=== PATIENT | female | born 1960 | race Caucasian/White ===

== ENCOUNTER → 2017-11-29 09:49 | Outpatient (CLI) | payer OTHER, SELFPAY ==
--- NOTE | 2017-11-29 09:52 | DI.RAD.S_ITS ---
PROCEDURE: XR FOOT LT MIN 3V INDICATIONS: PAIN IN LT FOOT TECHNIQUE: 3 views of the foot were acquired. COMPARISON: [facility] Outside [facility], CR, XR BILAT FOOT 3VW, 10/16/2016, 9:03. FINDINGS: Bones: No fractures or dislocations. No suspicious bony lesions. Joint degeneration is evident in the tarsometatarsal joints 2-5 and in the navicular -cuneiform joint medially. No erosive changes seen. Weightbearing lateral view shows pes planus with calcaneal pitch of 6.8?. Soft tissues: No tibiotalar joint effusion. Achilles tendon appears normal. Linear soft tissue calcifications are noted in the region of the Achilles tendon and overlying the medial head of the first metatarsal IMPRESSION: 1. Pes planus. 2. Tarsometatarsal osteoarthritis. 3. Possible old partial tear Achilles tendon. Dictated by: Mauro Thomas M.D. on 11/29/2017 at 11:19 Approved by: Mauro Thomas M.D. on 11/29/2017 at 11:24
== END ==
PROVIDERS: Family Provider Family Medicine; PCP Family Medicine; Visit Provider Family Medicine
DX: M19.072 Primary osteoarthritis, left ankle and foot (principal)
CPT/HCPCS: 73630

== ENCOUNTER → 2017-12-20 10:56 | Outpatient (CLI) | payer OTHER, SELFPAY ==
[2017-12-20 12:05] LABS: Add Manual Diff / Slide Review NO; Basophils Percent Auto 0.5 % (0-2); Eosinophils Percent Auto 2.7 % (2-4); Hematocrit 34.6 % (36-46); Hemoglobin 11.7 g/dL (12.0-16.0); Lymphocytes Percent Auto 33.1 % (25-40); Mean Corpuscular HGB Conc 33.7 % (30-36); Mean Corpuscular Hemoglobin 31.7 PG (26-34); Monocytes Percent Auto 8.8 % (3-14); Neutrophils Absolute Auto 3200 /uL (3000-5900); Neutrophils Percent Auto 54.9 % (50-75); Platelet Count 270 X10^3/uL (150-400); Red Blood Cell Count 3.68 X10^6/uL (4.0-5.2); Red Cell Distribution Width 13.1 % (11.6-14.8); White Blood Cell Count 5.9 X10^3/uL (4.5-11.0)
[2017-12-20 12:13] LABS: Alanine Aminotransferase 25 IU/L (9-52); Albumin 4.3 g/dL (3.5-5.0); Albumin Globulin Ratio 1.3 (1.0-2.8); Alkaline Phosphatase 108 U/L (38-126); Aspartate Aminotransferase 22 IU/L (14-36); BUN Creatinine Ratio 25.8 (6-22); Bilirubin Total 0.5 mg/dL (0.2-1.3); Blood Urea Nitrogen 31 mg/dL (7-17); Calcium 10.4 mg/dL (8.4-10.2); Carbon Dioxide 31 mmol/L (22-32); Chloride 99 mmol/L (98-107); Estimated Glomerular Filt Rate 46.5 mL/min (>60); Globulin 3.2 g/dL (1.7-4.1); Glucose 93 mg/dL (70-100); HEMOLYSIS < 15 (0-50); Potassium 5.2 mmol/L (3.4-5.1); Sodium 138 mmol/L (137-145); Total Protein 7.5 g/dL (6.3-8.2)
== END ==
PROVIDERS: Family Provider Family Medicine; PCP Family Medicine; Visit Provider Family Medicine
DX: M79.7 Fibromyalgia (principal)
CPT/HCPCS: 36415; 80053; 84443; 85025

== ENCOUNTER → 2018-01-21 08:25 | Outpatient (CLI) | payer OTHER, SELFPAY ==
--- NOTE | 2018-01-21 | DI.MRI.S_ITS ---
PROCEDURE: MR SHOULDER RT W CON INDICATIONS: right shoulder osteoarthritis TECHNIQUE: After the administration of 12 mL of dilute intra-articular Gadolinium contrast, oblique coronal T1 and T2 spin echo with fat saturation, oblique sagittal T1 spin echo with and without fat saturation, oblique sagittal T2 fast spin echo with fat saturation, axial T1 spin echo with fat saturation through the shoulder. COMPARISON: [facility], MR, SHOULDER WITHOUT CONTRAST, 08/11/2017, 17:26. FINDINGS: Image quality: Suboptimal related to motion artifact on several imaging sequences. Rotator cuff: There is a large, chronic appearing full-thickness tear of the rotator cuff. The supraspinatus and infraspinatus tendons are completely torn and retracted beyond the glenoid with corresponding muscle atrophy. There is moderate to high-grade partial-thickness tearing evident involving the distal subscapularis tendon with corresponding mild tendinopathy. The teres minor tendon is intact. No significant subscapularis or teres minor muscle atrophy is evident. Bones and bursae: There is no acute fracture, dislocation, or suspicious osseous lesion identified involving the osseous structures of the right shoulder. However, there is proximal subluxation of the humeral head with respect to the glenoid. Metallic susceptibility artifact overlying the humeral head is compatible with prior rotator cuff repair. There are moderate degenerative changes of the acromioclavicular joint. There is adequate distention of the glenohumeral joint with the injected contrast. No definite loose intra-articular joint bodies are present. There is mild synovial hypertrophy. Capsule and soft tissues: There is a tear along the posterosuperior aspect of the labrum, which is similar to the previous examination. This tear of the labrum may be circumferential. The long head of the biceps tendon is positioned within the bicipital groove. The proximal most aspect of this tendon is not definitely seen, which may be related to previous biceps tenodesis. No definite acute injuries involving the glenohumeral ligaments are evident. IMPRESSION: 1. Large chronic appearing full-thickness tear of the supraspinatus and infraspinatus tendons with corresponding muscle atrophy. 2. Moderate to high-grade partial-thickness tearing of the distal subscapularis tendon with corresponding tendinopathy. 3. Moderate-sized posterosuperior labral tear. 4. Possible previous biceps tenodesis. Please correlate clinically. 5. Mild to moderate degenerative changes of the glenohumeral and acromioclavicular joints. Dictated by: Alpesh Khan M.D. on 01/21/2018 at 15:36 Approved by: Alpesh Khan M.D. on 01/21/2018 at 15:58
--- NOTE | 2018-01-21 | DI.RAD.S_ITS ---
PROCEDURE: FL SHOULDER INJECTION MR/CT RT INDICATIONS: right shoulder osteoarthritis TECHNIQUE: The indications, alternatives, benefits, risks, and complications of the procedure were explained to the patient. Written informed consent was obtained and placed in the chart. The shoulder was examined fluoroscopically and a site for needle placement chosen for entry into the glenohumeral joint from an anterior approach. The skin was prepped and draped in a sterile fashion, and 1% lidocaine infiltrated from skin down to joint capsule. A spinal needle was inserted into the glenohumeral joint, and a small amount of iodinated contrast media injected to confirm intra-articular placement of the needle tip. This was followed by approximately 12 mL dilute solution of a gadolinium containing MR contrast agent. The needle was removed and a dressing was applied. The patient was given postprocedural instructions and sent to the MR suite for MR imaging. FINDINGS: A single fluoroscopic spot image demonstrates intra-articular location of injected iodinated contrast. Soft tissue anchors project in the right humeral head. IMPRESSION: Successful fluoroscopically guided administration of dilute Gadolinium solution into the shoulder joint for MR arthrogram. Dictated by: Carlo Haley M.D. on 01/21/2018 at 11:14 Approved by: Carlo Haley M.D. on 01/21/2018 at 11:14
== END ==
PROVIDERS: Family Provider Family Medicine; PCP Family Medicine; Visit Provider Orthopaedic Surgery
DX: M75.101 Unspecified rotator cuff tear or rupture of right shoulder, not specified as traumatic (principal); S43.491A Other sprain of right shoulder joint, initial encounter; M19.011 Primary osteoarthritis, right shoulder
CPT/HCPCS: 23350; 73222; 77002

== ENCOUNTER → 2018-01-24 16:42 | Outpatient (CLI) | payer OTHER, SELFPAY ==
[2018-01-24 17:29] LABS: Add Manual Diff / Slide Review NO; Basophils Percent Auto 0.5 % (0-2); Eosinophils Percent Auto 2.6 % (2-4); Hematocrit 36.5 % (36-46); Hemoglobin 12.3 g/dL (12.0-16.0); Lymphocytes Percent Auto 32.6 % (25-40); Mean Corpuscular HGB Conc 33.7 % (30-36); Mean Corpuscular Hemoglobin 31.1 PG (26-34); Mean Corpuscular Volume 92.2 fL (80-100); Neutrophils Absolute Auto 2900 /uL (3000-5900); Neutrophils Percent Auto 54.3 % (50-75); Platelet Count 263 X10^3/uL (150-400); Red Blood Cell Count 3.96 X10^6/uL (4.0-5.2); Red Cell Distribution Width 13.3 % (11.6-14.8); White Blood Cell Count 5.3 X10^3/uL (4.5-11.0)
[2018-01-24 17:42] LABS: BUN Creatinine Ratio 25.5 (6-22); Blood Urea Nitrogen 28 mg/dL (7-17); Calcium 10.2 mg/dL (8.4-10.2); Carbon Dioxide 29 mmol/L (22-32); Chloride 95 mmol/L (98-107); Estimated Glomerular Filt Rate 51.4 mL/min (>60); Glucose 92 mg/dL (70-100); HEMOLYSIS < 15 (0-50); Potassium 4.4 mmol/L (3.4-5.1); Sodium 133 mmol/L (137-145)
[2018-01-24 18:16] LABS: Ferritin 31.5 ng/mL (11.1-264)
[2018-01-24 18:21] LABS: HEMOLYSIS < 15 (0-50); Iron 39 ug/dL (37-170)
[2018-01-24 18:33] LABS: Percent Iron Saturation 11 % (15-50); Total Iron Binding Capacity 370 ug/dL (265-497); Transferrin 301 mg/dL (206-381)
[2018-01-24 18:41] LABS: Vitamin D 25 Hydroxy (D3) 47.7 ng/mL (30.0-100.0)
== END ==
PROVIDERS: Family Provider Family Medicine; PCP Family Medicine; Visit Provider Family Medicine
DX: D64.9 Anemia, unspecified (principal); G25.81 Restless legs syndrome
CPT/HCPCS: 36415; 80048; 82306; 82728; 83540; 83550; 85025

== ENCOUNTER → 2018-02-28 14:39 | Outpatient (CLI) | payer OTHER, SELFPAY ==
--- NOTE | 2018-02-28 14:41 | DI.RAD.S_ITS ---
PROCEDURE: XR LUMBAR SPINE 2-3V INDICATIONS: Low back pain TECHNIQUE: 3 views of the lumbar spine were acquired. COMPARISON: [facility], , L-SPINE 2-3 VIEWS, 03/24/2007, 15:50. FINDINGS: Bones: 5 [id number] vertebrae are present. [id number] dextroscoliosis of lumbar spine centered at L2-3 level is seen. Increased intervertebral disc space and degenerative endplate changes with bilateral facet arthrosis is noted throughout lumbar spine more prominent at L4-5 and L5-S1 levels. No vertebral body compression fractures. No suspicious bony lesions. Soft tissues: Overlying bowel gas pattern is normal. No suspicious soft tissue calcifications. IMPRESSION: Degenerative disc disease throughout lumbar spine. No acute compression fracture or traumatic spondylolisthesis. Dictated by: Ney Torres M.D. on 02/28/2018 at 15:45 Approved by: Ney Torres M.D. on 02/28/2018 at 15:46
== END ==
PROVIDERS: Family Provider Family Medicine; PCP Family Medicine; Visit Provider Registered Nurse
DX: M51.36 Other intervertebral disc degeneration, lumbar region (principal); M54.5 Low back pain; M51.37 Other intervertebral disc degeneration, lumbosacral region
CPT/HCPCS: 72100

== ENCOUNTER → 2018-04-01 15:35 | Outpatient (CLI) | payer OTHER, SELFPAY ==
--- NOTE | 2018-04-01 15:37 | DI.MRI.S_ITS ---
PROCEDURE: MR SHOULDER LT WO CON INDICATIONS: LEFT SHOULDER PAIN TECHNIQUE: Noncontrast oblique coronal T2 fast spin echo with fat saturation, oblique sagittal T1 spin echo and T2 fast spin echo with fat saturation, axial T1 spin echo and T2 fast spin echo with fat saturation through the shoulder. COMPARISON: None. FINDINGS: Image quality: Severely degraded by uncontrollable motion artifact. This is despite multiple attempts and secondary to severe pain during the examination. Rotator cuff: Suboptimal evaluation due to motion artifact however there is large full-thickness rotator cuff tear involving the infraspinatus and supraspinatus tendons. There is also prominent interstitial tearing involving the infraspinatus tendon for example image 2 series 9, image 13 series 4. Teres minor demonstrates bursal surface fraying. Subscapularis tendon appears intact although distal thickening and tendinopathy with interstitial tearing. Mild atrophy of the supraspinatus and infraspinatus muscle bellies and fatty infiltration of the infraspinatus muscle. Bones and bursae: No bone marrow contusions or fractures. Severe acromioclavicular joint degeneration. The acromion demonstrates conventional anatomy, without an os acromiale. Capsule and soft tissues: The labrum is not well seen due to severe motion artifact. Portions of anterior and posterior labrum appear grossly intact. The superior and inferior labrum are not well visualized due to motion. The long head of the biceps tendon is not well-visualized although unclear this is due to partial or complete rupture, versus motion artifact. Please correlate with clinical exam findings. The coracohumeral ligament is normal in thickness. IMPRESSION: Severely suboptimal evaluation due to uncontrollable motion artifact as detailed above. Large full-thickness tear involving the supraspinatus and infraspinatus tendon. Bursal surface fraying of the teres minor. Distal subscapularis tendinopathy and thickening with interstitial tearing. Mild atrophy of the supraspinatus and infraspinatus muscle bellies. Long head biceps tendon not well visualized following clear this is secondary to motion versus partial or complete rupture. Please correlate to clinical exam findings. Dictated by: Carlo Haley M.D. on 04/01/2018 at 16:42 Approved by: Carlo Haley M.D. on 04/01/2018 at 16:50
== END ==
PROVIDERS: Family Provider Family Medicine; PCP Family Medicine; Visit Provider Orthopaedic Surgery
DX: M25.512 Pain in left shoulder (principal); M75.122 Complete rotator cuff tear or rupture of left shoulder, not specified as traumatic
CPT/HCPCS: 73221

== ENCOUNTER 2018-04-13 14:44 | Emergency (ER) | payer OTHER, SELFPAY ==
[2018-04-13 15:03] VITALS: BP 140/92; PULSE 81; RESP 18; TEMP 36.8; O2SAT 99
--- NOTE | 2018-04-13 15:28 | DI.US.S_ITS ---
PROCEDURE: US PERIPH VENOUS LOW EXTREM LT INDICATIONS: dvt concern TECHNIQUE: Real-time imaging, as well as color and pulse Doppler interrogation, were performed of the lower extremity deep veins from the inguinal ligament to the popliteal fossa. COMPARISON: None. FINDINGS: The deep veins are normally compressible, and free of intraluminal thrombus. Color and pulse Doppler demonstrate normal phasic intraluminal flow. There is normal augmentation response to distal compression maneuver. IMPRESSION: No DVT found left lower extremity. Dictated by: Spencer Stone M.D. on 04/13/2018 at 17:04 Approved by: Spencer Stone M.D. on 04/13/2018 at 17:04
--- NOTE | 2018-04-13 17:23 | ED.EXTPRO ---
HPI - Extremity Problem <Yanet Caal CHARRER-BC - Last Filed: 04/13/18 20:47> General Chief complaint: Extremity Problem,Nontraumatic Stated complaint: states possible DVT Time Seen by Provider: 04/13/18 16:19 Source: patient Mode of arrival: ambulatory Limitations: no limitations History of Present Illness HPI Narrative: Patient presents with chief complaint of left lower leg pain. 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 She is concerned about recurrent DVT in her left lower leg as she has had increased swelling noted and increased pain in the calf. Last time she took blood thinners for about 6 months. She states she had a shoulder surgery about 2 weeks ago. She denies any trauma, numbness, tingling of her left lower leg. She denies any chest pain, shortness of breath. Related Data Home Medications Medication Instructions Recorded Confirmed acetaminophen 325 mg PO PRN PRN #0 09/10/11 03/17/18 cholecalciferol (vitamin D3) 5,000 unit PO DIRECTED #0 10/15/17 04/13/18 Disabled Parking Permit 1 dev MISCELLANEOUS PRN PRN 04/13/18 04/13/18 lisinopril 20 mg PO BID 04/13/18 04/13/18 oxycodone 1 - 2 tab PO Q3HP PRN 04/13/18 04/13/18 pramipexole [Mirapex] 0.125 mg PO QID 04/13/18 04/13/18 Previous Rx's Medication Instructions Recorded diclofenac sodium 50 mg PO TID #180 tab 09/14/17 spironolactone 25 mg PO BID #180 tab 10/05/17 thyroid (pork) [[place]ry Thyroid] 60 mg PO QDAY #90 tab 10/25/17 citalopram 20 mg tablet 40 mg PO DAILY #180 tab 12/20/17 trazodone 50 mg tablet 100 mg PO BEDTIME #60 tab 03/07/18 cyclobenzaprine 10 mg tablet 10 mg PO TID PRN #30 tab 04/07/18 Allergies Allergy/AdvReac Type Severity Reaction Status Date / Time amoxicillin [AMOXICILLIN] Allergy Severe HIVES Unverified 03/17/18 11:02 Sulfa (Sulfonamide Allergy Severe MOUTH Unverified 03/17/18 11:02 Antibiotics) LESIONS [SULFA (SULFONAMIDE ANTIBIOTICS)] iodine [IODINE] AdvReac Severe VAGINAL Unverified 03/17/18 11:02 BURNING W/DOUCHE, TOPICAL IS O.K. Review of Systems <Yanet CaalMADIP- - Last Filed: 04/13/18 20:47> Review of Systems GENERAL: Denies chills, fatigue, malaise, fever, sweats. HEENT: Denies sinus pain, ear pain, sore throat, difficulty swallowing, dizziness. RESPIRATORY: Denies dyspnea, cough, wheezing, hemoptysis, sputum. CARDIOVASCULAR: Denies chest pain, palpitations, orthopnea, edema, GASTROINTESTINAL: Denies nausea, vomiting, abdominal pain, diarrhea, constipation, melena. : Denies dysuria, frequency, incontinence, hematuria, urinary retention. MUSCULOSKELETAL: See HPI SKIN: Denies rash, skin lesions, or other NEUROLOGIC: Denies weakness, headache, numbness, change in speech, confusion, seizures, incoordination. PSYCHIATRIC: No concerning psychosocial issues. 12 point review of systems is negative except for those stated above Exam <Yanet Ten [facility]- - Last Filed: 04/13/18 20:47> Narrative Exam Narrative: GENERAL: Obese patient lying on stretcher. HEAD: Atraumatic. Normocephalic. No temporal or scalp tenderness. EYES: Pupils equal round and reactive. Extraocular motions intact. No scleral icterus. No injection or drainage. ENT: Nose without bleeding, purulent drainage or septal hematoma. Throat without erythema, tonsillar hypertrophy or exudate. Uvula midline. Airway patent. NECK: Trachea midline. No JVD or lymphadenopathy. Supple, nontender, no meningeal signs. CARDIOVASCULAR: Regular rate and rhythm without murmurs, gallops, or rubs. RESPIRATORY: Clear to auscultation. Breath sounds equal bilaterally. No wheezes, rales, or rhonchi. GASTROINTESTINAL: Abdomen soft, non-tender, nondistended. No hepato-splenomegaly, or palpable masses. No guarding. EXTREMITIES: +1 edema noted bilateral lower extremities. pedal pulses intact bilateral lower extremities. Warmth is normal. White refill less than 2 sec to the bilateral lower extremities. Negative bilaterally. BACK: Nontender without deformity or crepitance. No flank tenderness. NEURO: AOx3. SKIN: No erythema or ecchymosis noted bilateral lower extremities. Initial Vital Signs Initial Vital Signs: Vital Signs Temperature 98.3 F 04/13/18 15:03 Pulse Rate 81 04/13/18 15:03 Respiratory Rate 18 04/13/18 15:03 Blood Pressure 140/92 H 04/13/18 15:03 Pulse Oximetry 99 04/13/18 15:03 <Karlene Barajas MD - Last Filed: 04/15/18 12:00> Initial Vital Signs Initial Vital Signs: Vital Signs Temperature 98.3 F 04/13/18 15:03 Pulse Rate 81 04/13/18 15:03 Respiratory Rate 18 04/13/18 15:03 Blood Pressure 140/92 H 04/13/18 15:03 Pulse Oximetry 99 04/13/18 15:03 Course <MICHAEL Shea - Last Filed: 04/13/18 20:47> Orders Ordered: ED Orders 04/13/18 15:28 US periph venous low extrem lt Stat Vital Signs - 8 hr 04/13/18 15:03 04/13/18 17:36 Temperature 98.3 F Pulse Rate 81 80 Respiratory Rate 18 14 Blood Pressure 140/92 H Blood Pressure [Left Arm] 132/70 Pulse Oximetry 99 98 <Karlene Barajas MD - Last Filed: 04/15/18 12:00> Orders Ordered: ED Orders 04/13/18 15:28 US periph venous low extrem lt Stat Vital Signs - 8 hr 04/13/18 15:03 04/13/18 17:36 Temperature 98.3 F Pulse Rate 81 80 Respiratory Rate 18 14 Blood Pressure 140/92 H Blood Pressure [Left Arm] 132/70 Pulse Oximetry 99 98 MDM - Extremity (Nontraumatic) <MICHAEL Shea - Last Filed: 04/13/18 20:47> Imaging Data Venous US: Radiologist's impression: [address] [address] Ultrasound Report Signed Patient: Ella Jones [facility]#: [id number] : 1Acct:[id number] Age/Sex: 58 / FDate of Service: 04/13/18 Loc: ED Accession Number: [id number] Procedure: US periph venous low extrem lt Ordering Provider: Yanet Caal-BC PROCEDURE: US PERIPH VENOUS LOW EXTREM LT INDICATIONS: dvt concern TECHNIQUE: Real-time imaging, as well as color and pulse Doppler interrogation, were performed of the lower extremity deep veins from the inguinal ligament to the popliteal fossa. COMPARISON: None. FINDINGS: The deep veins are normally compressible, and free of intraluminal thrombus. Color and pulse Doppler demonstrate normal phasic intraluminal flow. There is normal augmentation response to distal compression maneuver. IMPRESSION: No DVT found left lower extremity. Dictated by: Spencer Stone M.D. on 04/13/2018 at 17:04 Approved by: Spencer Stone M.D. on 04/13/2018 at 17:04 MDM Narrative Medical decision making narrative: Patient presents for left leg pain as well as edema. She has a history of DVT, PE and recently had surgery. However her exam she had bilateral edema and her ultrasound showed no DVT. I offered to do lab work to evaluate for possible other causes of edema, but she declined. I highly suspect that her stopping of her spironolactone a few weeks ago might have contributed to. I encouraged her to follow with her primary care provider if needed and gave return precautions to emergency department including chest pain shortness of breath or concern for another DVT or PE. She had no questions or concerns upon discharge. Discharge Plan Departure Patient Disposition: Home Clinical Impression: Acute leg pain, Edema Discharge Date/Time: 04/13/18 17:37 Interventions: ED Discharge Assessment Last Done: 04/13/18 17:36 Instructions: DI for Leg Pain, DI for Peripheral Edema -- Bilateral, DI for Peripheral Edema, Unilateral Activity Restrictions/Additional Instructions: Please follow-up with primary care provider regarding your leg pain in your leg swelling if needed. Come back to the emergency department for any acute concerns including chest pain, shortness of breath or concern for another PE/DVT. Today your ultrasound came back negative for any DVT. Prescriptions: No Action acetaminophen 325 MG tablet 325 mg PO PRN PRN (Reason: pain) Qty: 0 RF: 0 diclofenac sodium 50 MG tablet,delayed release (DR/EC) 50 mg PO TID Qty: 180 RF: 3 spironolactone 25 MG tablet 25 mg PO BID Qty: 180 RF: 5 cholecalciferol (vitamin D3) 5,000 UNIT capsule 5,000 unit PO DIRECTED Qty: 0 RF: 0 thyroid (pork) [[place] Thyroid] 60 MG tablet 60 mg PO QDAY Qty: 90 RF: 1 trazodone 50 mg tablet 100 mg PO BEDTIME Qty: 60 RF: 1 cyclobenzaprine 10 mg tablet 10 mg PO TID PRN (Reason: muscle spasm) Qty: 30 RF: 1 citalopram 20 mg tablet 40 mg PO DAILY Qty: 180 RF: 3 lisinopril 10 mg tablet 20 mg PO BID RF: 0 pramipexole [Mirapex] 0.125 mg tablet 0.125 mg PO QID RF: 0 oxycodone 5 mg tablet 1 - 2 tab PO Q3HP PRN (Reason: pain) RF: 0 Disabled Parking Permit 1 dev miscellaneous PRN PRN (Reason: parking) RF: 0
--- NOTE | 2018-04-13 17:30 | ED_ITS ---
HPI - Extremity Problem <Yanet Caal FLAG SIGNALER-BC - Last Filed: 04/13/18 20:47> General Chief complaint: Extremity Problem,Nontraumatic Stated complaint: states possible DVT Time Seen by Provider: 04/13/18 16:19 Source: patient Mode of arrival: ambulatory Limitations: no limitations History of Present Illness HPI Narrative: Patient presents with chief complaint of left lower leg pain. 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 She is concerned about recurrent DVT in her left lower leg as she has had increased swelling noted and increased pain in the calf. Last time she took blood thinners for about 6 months. She states she had a shoulder surgery about 2 weeks ago. She denies any trauma, numbness, tingling of her left lower leg. She denies any chest pain, shortness of breath. Related Data Home Medications Medication Instructions Recorded Confirmed acetaminophen 325 mg PO PRN PRN #0 09/10/11 03/17/18 cholecalciferol (vitamin D3) 5,000 unit PO DIRECTED #0 10/15/17 04/13/18 [address]abled [address]ing Permit 1 dev MISCELLANEOUS PRN PRN 04/13/18 04/13/18 lisinopril 20 mg PO BID 04/13/18 04/13/18 oxycodone 1 - 2 tab PO Q3HP PRN 04/13/18 04/13/18 pramipexole [Mirapex] 0.125 mg PO QID 04/13/18 04/13/18 Previous Rx's Medication Instructions Recorded diclofenac sodium 50 mg PO TID #180 tab 09/14/17 spironolactone 25 mg PO BID #180 tab 10/05/17 thyroid (pork) [[place] Thyroid] 60 mg PO QDAY #90 tab 10/25/17 citalopram 20 mg tablet 40 mg PO DAILY #180 tab 12/20/17 trazodone 50 mg tablet 100 mg PO BEDTIME #60 tab 03/07/18 cyclobenzaprine 10 mg tablet 10 mg PO TID PRN #30 tab 04/07/18 Allergies Allergy/AdvReac Type Severity Reaction Status Date / Time amoxicillin [AMOXICILLIN] Allergy Severe HIVES Unverified 03/17/18 11:02 Sulfa (Sulfonamide Allergy Severe MOUTH Unverified 03/17/18 11:02 Antibiotics) LESIONS [SULFA (SULFONAMIDE ANTIBIOTICS)] iodine [IODINE] AdvReac Severe VAGINAL Unverified 03/17/18 11:02 BURNING W/DOUCHE, TOPICAL IS O.K. Review of Systems <Yanet CaalMADIP- - Last Filed: 04/13/18 20:47> Review of Systems GENERAL: Denies chills, fatigue, malaise, fever, sweats. HEENT: Denies sinus pain, ear pain, sore throat, difficulty swallowing, dizziness. RESPIRATORY: Denies dyspnea, cough, wheezing, hemoptysis, sputum. CARDIOVASCULAR: Denies chest pain, palpitations, orthopnea, edema, GASTROINTESTINAL: Denies nausea, vomiting, abdominal pain, diarrhea, constipation, melena. : Denies dysuria, frequency, incontinence, hematuria, urinary retention. MUSCULOSKELETAL: See HPI SKIN: Denies rash, skin lesions, or other NEUROLOGIC: Denies weakness, headache, numbness, change in speech, confusion, seizures, incoordination. PSYCHIATRIC: No concerning psychosocial issues. 12 point review of systems is negative except for those stated above Exam <Yanet Ten [facility]- - Last Filed: 04/13/18 20:47> Narrative Exam Narrative: GENERAL: Obese patient lying on stretcher. HEAD: Atraumatic. Normocephalic. No temporal or scalp tenderness. EYES: Pupils equal round and reactive. Extraocular motions intact. No scleral icterus. No injection or drainage. ENT: Nose without bleeding, purulent drainage or septal hematoma. Throat without erythema, tonsillar hypertrophy or exudate. Uvula midline. Airway patent. NECK: Trachea midline. No JVD or lymphadenopathy. Supple, nontender, no meningeal signs. CARDIOVASCULAR: Regular rate and rhythm without murmurs, gallops, or rubs. RESPIRATORY: Clear to auscultation. Breath sounds equal bilaterally. No wheezes , rales, or rhonchi. GASTROINTESTINAL: Abdomen soft, non-tender, nondistended. No hepato-splenomegaly , or palpable masses. No guarding. EXTREMITIES: +1 edema noted bilateral lower extremities. pedal pulses intact bilateral lower extremities. Warmth is normal. White refill less than 2 sec to the bilateral lower extremities. Negative bilaterally. BACK: Nontender without deformity or crepitance. No flank tenderness. NEURO: AOx3. SKIN: No erythema or ecchymosis noted bilateral lower extremities. Initial Vital Signs Initial Vital Signs: Vital Signs Temperature 98.3 F 04/13/18 15:03 Pulse Rate 81 04/13/18 15:03 Respiratory Rate 18 04/13/18 15:03 Blood Pressure 140/92 H 04/13/18 15:03 Pulse Oximetry 99 04/13/18 15:03 <Karlene Barajas MD - Last Filed: 04/15/18 12:00> Initial Vital Signs Initial Vital Signs: Vital Signs Temperature 98.3 F 04/13/18 15:03 Pulse Rate 81 04/13/18 15:03 Respiratory Rate 18 04/13/18 15:03 Blood Pressure 140/92 H 04/13/18 15:03 Pulse Oximetry 99 04/13/18 15:03 Course <MICHAEL Shea - Last Filed: 04/13/18 20:47> Orders Ordered: ED Orders 04/13/18 15:28 US periph venous low extrem lt Stat Vital Signs - 8 hr 04/13/18 15:03 04/13/18 17:36 Temperature 98.3 F Pulse Rate 81 80 Respiratory Rate 18 14 Blood Pressure 140/92 H Blood Pressure [Left Arm] 132/70 Pulse Oximetry 99 98 <Karlene Barajas MD - Last Filed: 04/15/18 12:00> Orders Ordered: ED Orders 04/13/18 15:28 US periph venous low extrem lt Stat Vital Signs - 8 hr 04/13/18 15:03 04/13/18 17:36 Temperature 98.3 F Pulse Rate 81 80 Respiratory Rate 18 14 Blood Pressure 140/92 H Blood Pressure [Left Arm] 132/70 Pulse Oximetry 99 98 MDM - Extremity (Nontraumatic) <MICHAEL Shea - Last Filed: 04/13/18 20:47> Imaging Data Venous US: Radiologist's impression: [address] [address] Ultrasound Report Signed Patient: Ella Jones [facility]#: [id number] : 1Acct:[id number] Age/Sex: 58 / FDate of Service: 04/13/18 Loc: ED Accession Number: [id number] Procedure: US periph venous low extrem lt Ordering Provider: Yanet Caal-BC PROCEDURE: US PERIPH VENOUS LOW EXTREM LT INDICATIONS: dvt concern TECHNIQUE: Real-time imaging, as well as color and pulse Doppler interrogation, were performed of the lower extremity deep veins from the inguinal ligament to the popliteal fossa. COMPARISON: None. FINDINGS: The deep veins are normally compressible, and free of intraluminal thrombus. Color and pulse Doppler demonstrate normal phasic intraluminal flow. There is normal augmentation response to distal compression maneuver. IMPRESSION: No DVT found left lower extremity. Dictated by: Spencer Stone M.D. on 04/13/2018 at 17:04 Approved by: Spencer Stone M.D. on 04/13/2018 at 17:04 MDM Narrative Medical decision making narrative: Patient presents for left leg pain as well as edema. She has a history of DVT, PE and recently had surgery. However her exam she had bilateral edema and her ultrasound showed no DVT. I offered to do lab work to evaluate for possible other causes of edema, but she declined. I highly suspect that her stopping of her spironolactone a few weeks ago might have contributed to. I encouraged her to follow with her primary care provider if needed and gave return precautions to emergency department including chest pain shortness of breath or concern for another DVT or PE. She had no questions or concerns upon discharge. Discharge Plan Departure Patient Disposition: Home Clinical Impression: Acute leg pain, Edema Discharge Date/Time: 04/13/18 17:37 Interventions: ED Discharge Assessment Last Done: 04/13/18 17:36 Instructions: DI for Leg Pain, DI for Peripheral Edema -- Bilateral, DI for Peripheral Edema, Unilateral Activity Restrictions/Additional Instructions: Please follow-up with primary care provider regarding your leg pain in your leg swelling if needed. Come back to the emergency department for any acute concerns including chest pain, shortness of breath or concern for another PE/ DVT. Today your ultrasound came back negative for any DVT. Prescriptions: No Action acetaminophen 325 MG tablet 325 mg PO PRN PRN (Reason: pain) Qty: 0 RF: 0 diclofenac sodium 50 MG tablet,delayed release (DR/EC) 50 mg PO TID Qty: 180 RF: 3 spironolactone 25 MG tablet 25 mg PO BID Qty: 180 RF: 5 cholecalciferol (vitamin D3) 5,000 UNIT capsule 5,000 unit PO DIRECTED Qty: 0 RF: 0 thyroid (pork) [[place] Thyroid] 60 MG tablet 60 mg PO QDAY Qty: 90 RF: 1 trazodone 50 mg tablet 100 mg PO BEDTIME Qty: 60 RF: 1 cyclobenzaprine 10 mg tablet 10 mg PO TID PRN (Reason: muscle spasm) Qty: 30 RF: 1 citalopram 20 mg tablet 40 mg PO DAILY Qty: 180 RF: 3 lisinopril 10 mg tablet 20 mg PO BID RF: 0 pramipexole [Mirapex] 0.125 mg tablet 0.125 mg PO QID RF: 0 oxycodone 5 mg tablet 1 - 2 tab PO Q3HP PRN (Reason: pain) RF: 0 Disabled Parking Permit 1 dev miscellaneous PRN PRN (Reason: parking) RF: 0
[2018-04-13 17:36] VITALS: BP 132/70; PULSE 80; RESP 14; O2SAT 98
== END 2018-04-13 17:37 | disposition home or self-care (01) ==
PROVIDERS: Emergency Provider Nurse Practitioner Family; Family Provider Family Medicine; PCP Family Medicine
DX: M79.605 Pain in left leg (principal); R60.9 Edema, unspecified
CPT/HCPCS: 93971; 99282; 99284

== ENCOUNTER → 2018-05-03 07:30 | Outpatient (CLI) | payer OTHER, SELFPAY ==
[2018-05-03 08:21] LABS: Alanine Aminotransferase 27 IU/L (9-52); Albumin Globulin Ratio 1.5 (1.0-2.8); Alkaline Phosphatase 95 U/L (38-126); Aspartate Aminotransferase 20 IU/L (14-36); BUN Creatinine Ratio 15.6 (6-22); Bilirubin Total 0.6 mg/dL (0.2-1.3); Blood Urea Nitrogen 14 mg/dL (7-17); Calcium 9.4 mg/dL (8.4-10.2); Carbon Dioxide 31 mmol/L (22-32); Chloride 103 mmol/L (98-107); Estimated Glomerular Filt Rate > 60.0 mL/min (>60); Globulin 2.7 g/dL (1.7-4.1); Glucose 81 mg/dL (70-100); HEMOLYSIS < 15 (0-50); Potassium 3.8 mmol/L (3.4-5.1); Sodium 142 mmol/L (137-145); Total Protein 6.7 g/dL (6.3-8.2)
== END ==
PROVIDERS: PCP Family Medicine; Visit Provider Family Medicine
DX: N18.1 Chronic kidney disease, stage 1 (principal)
CPT/HCPCS: 36415; 80053

== ENCOUNTER → 2018-05-17 10:13 | Outpatient (CLI) | payer OTHER, SELFPAY | PROVIDERS: PCP Family Medicine; Visit Provider Family Medicine | DX: Z13.820 Encounter for screening for osteoporosis (principal); M85.88 Other specified disorders of bone density and structure, other site; Z78.0 Asymptomatic menopausal state; E07.9 Disorder of thyroid, unspecified | CPT/HCPCS: 77080 ==

== ENCOUNTER → 2018-05-24 07:42 | Outpatient (CLI) | payer OTHER, SELFPAY ==
--- NOTE | 2018-05-24 | DI.MRI.S_ITS ---
PROCEDURE: MR LUMBAR SPINE WO CON INDICATIONS: LUMBAR SPONDYLOLYSIS TECHNIQUE: Noncontrast sagittal T1 spin echo and T2 fast echo, sagittal STIR, axial T1 and T2 fast spin echo through the lumbar spine. In cases with scoliosis, additional coronal T2 fast spin echo may be performed. COMPARISON: MR, L-SPINE WITH AND WITHOUT CONTR, 03/04/2007, 8:25. MR, L-SPINE WITH AND WITHOUT CONTR, 03/26/2006, 9:01. [facility] [place], CR, SPINE LUMB 2 OR 3VW, 12/12/2015, 10:57. [facility], MR, L-SPINE WITHOUT CONTRAST, 12/03/2015, 14:41. [facility], CR, XR LUMBAR SPINE 2-3V, 02/28/2018, 14:18. FINDINGS: Image quality: Excellent. Alignment and Curvature: There is moderate dextroscoliosis; as well as normal bony alignment. Bone Marrow: Marrow is of normal overall signal. No acute vertebral body compression fractures. Spinal Cord: Conus medullaris terminates at the L1 level. Visualized cord demonstrates normal signal and size. Paraspinous Soft Tissues: No paravertebral masses. T11-T12: Moderate to severe loss of disc height and disc desiccation. There is circumferential posterior disc bulge and disc osteophyte complex. The central canal is moderately narrowed. Severe right and mild left foraminal stenosis. There is increased disc degeneration compared to the last exam dated 12/03/2015. T12-L1: Preserved disc height. Mild disc desiccation. There is minimal disc bulge. The central canal is patent. No foraminal stenosis. No significant change from last exam. L1-L2: Preserved disc height. Mild disc desiccation. There is diffuse posterior disc bulge. Bilateral facet arthropathy. The central canal is patent. No foraminal stenosis. No significant change from last exam. L2-L3: Mild loss of disc height and disc desiccation. There is diffuse posterior disc bulge and disc osteophyte complex. Moderate bilateral facet arthropathy. The central canal is moderately narrowed. Mild left and no right foraminal stenosis. No significant change from last exam. L3-L4: Severe loss of disc height and disc desiccation. There is diffuse posterior disc bulge and disc osteophyte complex. Mild bilateral facet arthropathy. The central canal is mildly narrowed. Mild left and no right foraminal stenosis. No significant change from last exam. L4-L5: Laminectomy is noted on the left. Moderate loss of disc height and disc desiccation. There is diffuse posterior disc bulge and disc osteophyte complex. There is right posterior paramedian disc extrusion with extruding disc measuring 10 mm anterior posterior, 16 mm transverse and 14 mm cephalocaudal. There is narrowing of the right lateral recess and impingement of the right L5 nerve root. Moderate right and mild left facet arthropathy. The central canal is mildly narrowed. Moderate bilateral foraminal stenosis, slightly increased. L5-S1: Dbegsioa-dp-[id number] loss of disc height and disc desiccation. There is diffuse posterior disc bulge. Moderate right and mild left facet arthropathy. The central canal is patent. Mild right and no left foraminal stenosis. No significant change from the last exam. IMPRESSION: 1. Multilevel degenerative disc disease and facet arthropathy as described. 2. Right posterior paramedian disc extrusion with a herniated disc measuring 10 x 16 x 14 mm occupying the right lateral recess and impinging the right L5 nerve root. 3. Multilevel central canal stenosis, moderate at T11-T12, L2-L3, mild at L3-L4 and L4-L5. 4. Multilevel foraminal stenosis as described. Dictated by: Alicia Martinez M.D. on 05/24/2018 at 9:48 Approved by: Alicia Martinez M.D. on 05/24/2018 at 10:42
== END ==
PROVIDERS: PCP Family Medicine; Visit Provider Acupuncturist
DX: M43.06 Spondylolysis, lumbar region (principal); M51.36 Other intervertebral disc degeneration, lumbar region; M51.37 Other intervertebral disc degeneration, lumbosacral region; M47.817 Spondylosis without myelopathy or radiculopathy, lumbosacral region; M47.816 Spondylosis without myelopathy or radiculopathy, lumbar region; M48.061 Spinal stenosis, lumbar region without neurogenic claudication
CPT/HCPCS: 72148

== ENCOUNTER → 2018-10-25 15:12 | Outpatient (CLI) | payer OTHER, SELFPAY ==
[2018-10-25 17:04] LABS: Alanine Aminotransferase 29 IU/L (9-52); Albumin 4.6 g/dL (3.5-5.0); Albumin Globulin Ratio 1.6 (1.0-2.8); Alkaline Phosphatase 113 U/L (38-126); Aspartate Aminotransferase 25 IU/L (14-36); BUN Creatinine Ratio 22.7 (6-22); Bilirubin Total 0.5 mg/dL (0.2-1.3); Blood Urea Nitrogen 25 mg/dL (7-17); Calcium 10.5 mg/dL (8.4-10.2); Carbon Dioxide 26 mmol/L (22-32); Chloride 98 mmol/L (98-107); Estimated Glomerular Filt Rate 51.2 mL/min (>60); Globulin 2.8 g/dL (1.7-4.1); Glucose 93 mg/dL (70-100); HEMOLYSIS < 15 (0-50); Potassium 4.6 mmol/L (3.4-5.1); Sodium 135 mmol/L (137-145); Total Protein 7.4 g/dL (6.3-8.2)
== END ==
PROVIDERS: PCP Family Medicine; Visit Provider Family Medicine
DX: I10 Essential (primary) hypertension (principal)
CPT/HCPCS: 36415; 80053

== ENCOUNTER → 2018-11-16 08:36 | Outpatient (CLI) | payer OTHER, SELFPAY ==
[2018-11-16 10:12] LABS: Add Manual Diff / Slide Review NO; Basophils Absolute Auto 0 /uL (0-100); Basophils Percent Auto 0.6 % (0-2); Eosinophils Absolute Auto 100 /uL (0-450); Eosinophils Percent Auto 2.5 % (2-4); Hematocrit 33.8 % (36-46); Hemoglobin 11.4 g/dL (12.0-16.0); Lymphocytes Absolute Auto 2200 /uL (1100-4500); Lymphocytes Percent Auto 39.8 % (25-40); Mean Corpuscular HGB Conc 33.6 % (30-36); Mean Corpuscular Hemoglobin 31.3 PG (26-34); Mean Corpuscular Volume 93.1 fL (80-100); Monocytes Absolute Auto 600 /uL (0-900); Monocytes Percent Auto 11.3 % (3-14); Neutrophils Absolute Auto 2600 /uL (1500-7000); Neutrophils Percent Auto 45.8 % (50-75); Platelet Count 279 X10^3/uL (150-400); Red Blood Cell Count 3.63 X10^6/uL (4.0-5.2); Red Cell Distribution Width 13.4 % (11.6-14.8); White Blood Cell Count 5.6 X10^3/uL (4.5-11.0)
== END ==
PROVIDERS: PCP Family Medicine; Visit Provider Surgery
DX: R10.13 Epigastric pain (principal)
CPT/HCPCS: 36415; 85025; 86677

== ENCOUNTER 2018-11-24 08:44 | Day surgery (SDC) | payer OTHER, SELFPAY ==
[2018-11-24 09:13] VITALS: BP 121/82; PULSE 86; RESP 15; TEMP 36.4; O2SAT 99; BMI 16.6
[2018-11-24] MEDS: SODIUM CHLORIDE 0.9% 1,000 ML 100 ML IV (09:15)
--- NOTE | 2018-11-24 10:37 | P.HP_ITS ---
History of Present Illness Date Patient Seen: 11/24/18 Time Patient Seen: 10:36 Chief complaint: [id number] Narrative: Patient seen and examined. Health unchanged since H and P performed on 11/14/2018 She does report however some improvement of her symptoms on PPI Patient History Medical History (Updated 04/28/18 @ 00:00 by ) Cervical spine disease (Chronic ~1983) Chronic back pain (Chronic ~1983) Fibromyalgia (Chronic ~2013) Foot pain (Chronic ~2011) GERD (gastroesophageal reflux disease) (Chronic ~2010) Hay fever (Chronic) Hypertension (Chronic ~2012) Hypothyroidism (Chronic ~2006) Lumbar spine pain (Chronic ~1983) Osteoarthritis (Chronic) Surgical History (Updated 12/18/17 @ 17:14 by Julita Anton) Anesthesia (Resolved) DVT (deep venous thrombosis) (Resolved ~11/2010) Pulmonary embolism (Resolved ~2010) History of carpal tunnel repair (~04/2014) History of carpal tunnel repair (~01/2014) History of knee replacement History of knee replacement History of knee replacement Status post arthroscopy Status post arthroscopy Status post delivery (01/27/87) Status post delivery (04/08/90) Status post discectomy Status post hysterectomy Status post laminectomy Family History (Updated 10/01/14 @ 00:00 by Conversion Provider) Father Emphysema/COPD Grandfather Heart disease Grandmother Diabetes mellitus Heart disease Mother Cancer Diabetes mellitus Heart disease Hypertension High cholesterol Grandmother Cancer Social History household members: family Smoking Status: Never smoker Family & Social History Family History (Updated 10/01/14 @ 00:00 by Conversion Provider) Father Emphysema/COPD Grandfather Heart disease Grandmother Diabetes mellitus Heart disease Mother Cancer Diabetes mellitus Heart disease Hypertension High cholesterol Grandmother Cancer Social History: household members family Tobacco & Substance use: Smoking Status Never smoker Meds Home Medications Medication Instructions Recorded Confirmed Type acetaminophen 325 mg PO PRN PRN #0 09/10/11 11/24/18 History cholecalciferol (vitamin D3) 5,000 unit PO DIRECTED #0 10/15/17 11/14/18 History Disabled Parking Permit 1 dev MISCELLANEOUS PRN PRN 04/13/18 11/14/18 History oxycodone 1 - 2 tab PO Q3HP PRN 04/13/18 11/24/18 History cyclobenzaprine 10 mg tablet 10 mg PO TID PRN #90 tab 05/11/18 11/24/18 Rx spironolactone 25 mg tablet 25 mg PO BID #180 tab 05/11/18 11/24/18 Rx trazodone 50 mg tablet 100 mg PO BEDTIME #180 tab 05/11/18 11/14/18 Rx calcium carbonate 600 mg calcium 600 mg PO BID tab 05/23/18 11/14/18 History (1,500 mg) tablet pramipexole 0.125 mg tablet 0.125 mg PO .COMPLEX #120 tab 10/10/18 11/14/18 Rx thyroid (pork) [[place] Thyroid] 60 mg PO QDAY #90 tab 10/17/18 11/24/18 Rx lisinopril 10 mg tablet 10 mg PO BID #360 tab 10/25/18 11/24/18 Rx omeprazole 20 mg capsule,delayed 20 mg PO BID #60 cap 11/14/18 11/24/18 Rx release citalopram 20 mg tablet 40 mg PO DAILY #180 tab 11/15/18 11/24/18 Rx Allergies Allergy/AdvReac Type Severity Reaction Status Date / Time amoxicillin [AMOXICILLIN] Allergy Severe HIVES Verified 11/14/18 10:15 Sulfa (Sulfonamide Allergy Severe MOUTH Verified 11/14/18 10:15 Antibiotics) LESIONS [SULFA (SULFONAMIDE ANTIBIOTICS)] iodine [IODINE] AdvReac Severe VAGINAL Verified 11/14/18 10:15 BURNING W/DOUCHE, TOPICAL IS O.K. Exam Vital Signs (past 8 hours): - 11/24/18 09:13 Temperature 97.5 F L Pulse Rate 86 Respiratory Rate 15 Blood Pressure 121/82 Pulse Oximetry 99 Oxygen Delivery Method Room Air
[2018-11-24] MEDS: TETRACAINE/BENZOCAINE/BUTAMBEN (CETACAINE) BOTTLE 1 SPRAY TOP (10:52)
[2018-11-24] MEDS: fentaNYL 250 MCG/5 ML INJ IV (10:56)
[2018-11-24] MEDS: MIDAZOLAM 5 MG/5 ML VIAL IV (10:57)
[2018-11-24] MEDS: ONDANSETRON 4 MG/2 ML INJ IV (11:03)
[2018-11-24 11:07] VITALS: BP 116/78; PULSE 83; RESP 14; TEMP 36.2; O2SAT 94
[2018-11-24 11:12] VITALS: BP 101/65; PULSE 83; RESP 10; O2SAT 96
--- NOTE | 2018-11-24 11:14 | P.OP.ENDO_ITS ---
Operative Date/Time/Diagnoses Date of procedure: 11/24/18 Time of procedure: 11:06 Pre-op diagnosis: GERD Post-op diagnosis: other (Type 1 paraesophagel hernia x 4cm) Procedure & Clinicians Study performed: EGD Same procedure as scheduled: Yes Indications: 58-year-old woman with persistent GERD symptom She has never had a prior EGD Surgeon: Christophe Colin Procedure Notes SCOAP/Timeout: yes Procedure in detail: The patient was brought to the endoscopy suite, time-out was completed she was sedated with a total of 4 mg of midazolam and 100 mcg of fentanyl. Her pharynx was in addition anesthetized with a spray of benzocaine. Once well sedated and endoscope was passed through her hypopharynx with the assistance of swallowing the esophagus was easily entered. The scope was passed without difficulty through the esophagus. The Z-line was encountered at 30 cm and the diaphragmatic hiatus at 34. Her Z-line was distinct, there were no finger-like extensions of gastric mucosa beyond the Z-line. The distal esopha thomas was without erosions or ulcerations. The scope was easily passed into the stomach, through the pylorus into the 2nd portion of the duodenum. Upon carefully withdrawing no duodenal ulcers were identified. The stomach was carefully inspected the mucosa appeared normal with typical rugae paturn -no ulceration. Upon retroflexion there was a Hill grade 4 valve significant, with significant gave off the diameter of the endoscope. They type 1 paraesophageal hernia was visualized. The scope was then withdrawn further -re inspecting the esophageal mucosa, this appeared normal without stricturing webs, rings. Sedation minutes: 16 Specimen(s): none sent Complications: none Impression: 4 cm type 1 paraesophageal hernia with grade 4 valve Recommendations: Continue medication(s) Plan for aftercare: To PACU and then home Follow up: weeks (Follow-up as scheduled with General surgery , approximately 2 weeks) Disposition: PACU
[2018-11-24 11:18] VITALS: BP 102/62; PULSE 78; RESP 10; O2SAT 100
[2018-11-24 11:23] VITALS: BP 99/64; PULSE 85; RESP 19; TEMP 35.8; O2SAT 97
[2018-11-24 11:40] VITALS: BP 97/67; PULSE 73; RESP 16; TEMP 35.9; O2SAT 99
== END 2018-11-24 11:50 | disposition home or self-care (01) ==
PROVIDERS: PCP Family Medicine; Visit Provider Surgery
PROC: 0DJ08ZZ Inspection of Upper Intestinal Tract, Via Natural or Artificial Opening Endoscopic (ICD-10-PCS; CPT 43235; principal; 2018-11-24 09:45)
DX: K21.9 Gastro-esophageal reflux disease without esophagitis (principal); K44.9 Diaphragmatic hernia without obstruction or gangrene; I10 Essential (primary) hypertension; E03.9 Hypothyroidism, unspecified; M79.7 Fibromyalgia
CPT/HCPCS: 43235; J2250; J2405; J3010

== ENCOUNTER → 2019-01-20 17:19 | Outpatient (CLI) | payer OTHER, SELFPAY ==
[2019-01-20 17:45] LABS: Add Manual Diff / Slide Review NO; Basophils Absolute Auto 0 /uL (0-100); Basophils Percent Auto 0.5 % (0-2); Eosinophils Absolute Auto 100 /uL (0-450); Eosinophils Percent Auto 1.3 % (2-4); Hematocrit 36.7 % (36-46); Hemoglobin 11.9 g/dL (12.0-16.0); Lymphocytes Absolute Auto 2000 /uL (1100-4500); Mean Corpuscular HGB Conc 32.4 % (30-36); Mean Corpuscular Hemoglobin 30.4 PG (26-34); Mean Corpuscular Volume 93.8 fL (80-100); Monocytes Absolute Auto 600 /uL (0-900); Monocytes Percent Auto 8.7 % (3-14); Neutrophils Absolute Auto 4600 /uL (1500-7000); Neutrophils Percent Auto 62.5 % (50-75); Platelet Count 318 X10^3/uL (150-400); Red Blood Cell Count 3.91 X10^6/uL (4.0-5.2); Red Cell Distribution Width 13.3 % (11.6-14.8); White Blood Cell Count 7.3 X10^3/uL (4.5-11.0)
== END ==
PROVIDERS: PCP Family Medicine; Visit Provider Surgery
DX: A04.8 Other specified bacterial intestinal infections (principal); R10.13 Epigastric pain
CPT/HCPCS: 36415; 85025; 86677

== ENCOUNTER 2019-03-10 08:35 | Day surgery (SDC) | payer OTHER, SELFPAY ==
[2019-03-10 09:13] VITALS: BMI 34.9
[2019-03-10] MEDS: SODIUM CHLORIDE 0.9% 1,000 ML 200 ML IV ×2 (09:15→11:56)
[2019-03-10] MEDS: FLEETS ENEMA 1 EACH PR ×2 (09:42→10:18)
--- NOTE | 2019-03-10 09:57 | SUR.PREOP ---
Inintial output cleaR WITH FEW FLECKS. 2nd output muddy and brown in color. Dr. Colin notified, Last cr. in chart reported as well per his instruction. Fleets x 2 given as ordered, after first, output semi clear with small amount of formed stool.
--- NOTE | 2019-03-10 10:11 | P.HP_ITS ---
History of Present Illness History of Present Illness Date Patient Seen: 03/10/19 Time Patient Seen: 10:11 Chief complaint: [id number] Narrative: 58-year-old woman with a history of colon polyps, no family history of colon or rectal cancer presents 5 years status post last colonoscopy for screening colonoscopy today. Feeling well No intestinal complaints Patient History Medical History (Updated 04/28/18 @ 00:00 by ) Cervical spine disease (Chronic ~1983) Chronic back pain (Chronic ~1983) Fibromyalgia (Chronic ~2013) Foot pain (Chronic ~2011) GERD (gastroesophageal reflux disease) (Chronic ~2010) Hay fever (Chronic) Hypertension (Chronic ~2012) Hypothyroidism (Chronic ~2006) Lumbar spine pain (Chronic ~1983) Osteoarthritis (Chronic) Surgical History (Updated 12/18/17 @ 17:14 by Julita Anton) Anesthesia (Resolved) DVT (deep venous thrombosis) (Resolved ~11/2010) History of carpal tunnel repair (~04/2014) History of carpal tunnel repair (~01/2014) History of knee replacement History of knee replacement History of knee replacement Pulmonary embolism (Resolved ~2010) Status post arthroscopy Status post arthroscopy Status post delivery (01/27/87) Status post delivery (04/08/90) Status post discectomy Status post hysterectomy Status post laminectomy Family History (Updated 10/01/14 @ 00:00 by Conversion Provider) Father Emphysema/COPD Grandfather Heart disease Grandmother Diabetes mellitus Heart disease Mother Cancer Diabetes mellitus Heart disease Hypertension High cholesterol Grandmother Cancer Social History household members: spouse Smoking Status: Never smoker Family & Social History Family History (Updated 10/01/14 @ 00:00 by Conversion Provider) Father Emphysema/COPD Grandfather Heart disease Grandmother Diabetes mellitus Heart disease Mother Cancer Diabetes mellitus Heart disease Hypertension High cholesterol Grandmother Cancer Social History: household members spouse Tobacco & Substance use: Smoking Status Never smoker Meds Home Medications and Allergies Home Medications Medication Instructions Recorded Confirmed Type acetaminophen 325 mg PO PRN PRN #0 09/10/11 03/10/19 History cholecalciferol (vitamin D3) 5,000 unit PO DIRECTED #0 10/15/17 03/10/19 History Disabled Parking Permit 1 dev MISCELLANEOUS PRN PRN 04/13/18 12/12/18 History oxycodone 1 - 2 tab PO Q3HP PRN 04/13/18 03/10/19 History cyclobenzaprine 10 mg tablet 10 mg PO TID PRN #90 tab 05/11/18 03/10/19 Rx spironolactone 25 mg tablet 25 mg PO BID #180 tab 05/11/18 03/10/19 Rx trazodone 50 mg tablet 100 mg PO BEDTIME #180 tab 05/11/18 03/10/19 Rx calcium carbonate 600 mg calcium 600 mg PO BID tab 05/23/18 03/10/19 History (1,500 mg) tablet thyroid (pork) [[place] Thyroid] 60 mg PO QDAY #90 tab 10/17/18 03/10/19 Rx lisinopril 10 mg tablet 10 mg PO BID #360 tab 10/25/18 03/10/19 Rx omeprazole 20 mg capsule,delayed 20 mg PO BID #60 cap 11/14/18 12/12/18 Rx release citalopram 20 mg tablet 40 mg PO DAILY #180 tab 11/15/18 03/10/19 Rx etodolac 400 mg tablet 400 mg PO BID #180 tab 12/21/18 03/10/19 Rx pramipexole 0.125 mg tablet 0.125 mg PO .COMPLEX #360 tab 02/20/19 03/10/19 Rx nitrofurantoin macrocrystal 100 mg 100 mg PO BID #20 cap 03/06/19 03/10/19 Rx capsule Allergies Allergy/AdvReac Type Severity Reaction Status Date / Time amoxicillin [AMOXICILLIN] Allergy Severe HIVES Verified 12/12/18 09:13 Sulfa (Sulfonamide Allergy Severe MOUTH Verified 12/12/18 09:13 Antibiotics) LESIONS [SULFA (SULFONAMIDE ANTIBIOTICS)] iodine [IODINE] AdvReac Severe VAGINAL Verified 12/12/18 09:13 BURNING W/DOUCHE, TOPICAL IS O.K. Review of Systems Constitutional Constitutional: Denies fever(s) Eyes Eyes: Denies bulging eyes ENT Ears, Nose, Mouth, and Throat: No lip swelling Cardiovascular Cardiovascular: Denies generalize swelling Respiratory Respiratory: Denies stridor Gastrointestinal Gastrointestinal: Denies coffee ground emesis Musculoskeletal Musculoskeletal: Denies loss of height Integumentary/Breasts Skin/Breast: Denies wounds Neurologic Neurologic: Denies abnormal speech and Denies confusion Psychiatric Psychiatric: Denies confusion and Denies tactile hallucinations Endocrine Endocrine: Denies deepening of the voice Hematologic/Lymphatic Hematologic/Lymphatic: Denies lymphadenopathy Allergic/Immunologic Allergic/Immunologic: Denies lip swelling Exam Const General: cooperative and healthy appearing Orientation: alert [facility] Head: normal to inspection Nose: nares normal Mouth: oral mucosae normal and lip normal Eyes Eyelids: eyelids normal Conjunctivae: conjunctivae normal Sclera: sclerae normal Neck Neck: supple and other (No thyromegally) Chest Chest: other (LCTAB , regular respiratory effort) Cardio Rhythm: regular rhythm Heart Sounds: S1 normal, S2 normal, no gallops, no murmurs and no rubs Skin General: no rashes or lesions noted Neuro General: alert and awake Psych Appearance: grossly normal Affect: normal affect Assessment & Plan Assessment & Plan narrative: Plan for screening colonoscopy today Risks and benefits of procedure including perforation, , missed lesion, hypoxia all discussed All questions answered Patient ready to proceed
[2019-03-10] MEDS: MIDAZOLAM 5 MG/5 ML VIAL IV (11:16)
[2019-03-10] MEDS: fentaNYL 250 MCG/5 ML INJ IV (11:16)
--- NOTE | 2019-03-10 11:55 | PM.OP.ENDO ---
Operative Date/Time/Diagnoses Date of procedure: 03/10/19 Time of procedure: 11:55 Pre-op diagnosis: Colorectal cancer screening Post-op diagnosis: same Procedure & Clinicians Study performed: Colonoscopy -incomplete due to poor prep Same procedure as scheduled: Yes Indications: 58-year-old woman presents for screening colonoscopy 5 years after her last, personal history of colon polyps. Surgeon: Christophe Colin Procedure Notes SCOAP/Timeout: Completed Procedure in detail: Patient was brought to the endoscopy suite a time-out was completed. She was sedated over the entire course of the procedure with 5 mg of midazolam and 150 micro g of fentanyl. A digital rectal was performed without abnormality. 160 cm colonoscope was then introduced through the anus and advanced through the folds of the rectum and colon. -the scope was advanced until approximately 100 cm there was significant amount of solid and liquid stool within the colon -and because of this it was not possible to get a good inspection of the colonic wall to adequately assess for polyp. As a consequence of this the procedure was aborted. Colonoscope slowly removed inspecting what was visualized able of the mucosal surfaces. Scope was retroflexed in the distal rectum. No lesions were identified -however I am not confident I could visualize all present lesions. Prep in adequate Patient tolerated the procedure well Scope withdrawal time: NA Sedation minutes: 30 Specimen(s): none sent Complications: none Impression: Incomplete screening colonoscopy Will need near future repeat colonoscopy Post-procedure Recommendations: Other recommendation (Repeat colonoscopy soonest convenience) Plan for aftercare: PACU then home Follow up: weeks Disposition: PACU
[2019-03-10 12:04] VITALS: BP 101/56; PULSE 80; RESP 16; TEMP 36.6; O2SAT 94
[2019-03-10 12:07] VITALS: BP 96/58; PULSE 79; RESP 16; O2SAT 96
[2019-03-10 12:12] VITALS: BP 111/67; PULSE 78; RESP 12; TEMP 36.8; O2SAT 96
[2019-03-10 12:16] VITALS: BP 111/72; PULSE 72; RESP 12; TEMP 36.8; O2SAT 96
[2019-03-10 13:30] VITALS: BP 110/70; PULSE 77; RESP 18; TEMP 36.7; O2SAT 99
== END 2019-03-10 13:40 | disposition home or self-care (01) ==
PROVIDERS: PCP Family Medicine; Visit Provider Surgery
PROC: 0DJD8ZZ Inspection of Lower Intestinal Tract, Via Natural or Artificial Opening Endoscopic (ICD-10-PCS; CPT 45378; principal; 2019-03-10 09:45)
DX: Z86.010 Personal history of colon polyps (principal); Z53.09 Procedure and treatment not carried out because of other contraindication
CPT/HCPCS: G0104; 99152; 99153; J2250; J3010

== ENCOUNTER 2019-03-30 09:52 | Day surgery (SDC) | payer OTHER, SELFPAY ==
[2019-03-30 10:21] VITALS: BP 94/75; PULSE 98; RESP 16; TEMP 36.3; O2SAT 99; BMI 35.4
[2019-03-30] MEDS: SODIUM CHLORIDE 0.9% 1,000 ML 200 ML IV (10:40)
--- NOTE | 2019-03-30 11:03 | PM.HP.1 ---
History of Present Illness History of Present Illness Date Patient Seen: 03/30/19 Time Patient Seen: 11:03 Chief complaint: [id number] Narrative: The patient is woman here for a screening colonoscopy. She had an attempt at a colonoscopy in February but her prep was poor and it had to be abandoned. Her prep this time seems to be better. She says that the material coming through is clear. Past history significant for personal history of polyps. Last complete colonoscopy was 6 years ago. Patient History Medical History Cervical spine disease (Chronic ~1983) Chronic back pain (Chronic ~1983) Fibromyalgia (Chronic ~2013) Foot pain (Chronic ~2011) GERD (gastroesophageal reflux disease) (Chronic ~2010) Hay fever (Chronic) Hypertension (Chronic ~2012) Hypothyroidism (Chronic ~2006) Lumbar spine pain (Chronic ~1983) Osteoarthritis (Chronic) Surgical History Anesthesia (Resolved) DVT (deep venous thrombosis) (Resolved ~11/2010) History of carpal tunnel repair (~04/2014) History of carpal tunnel repair (~01/2014) History of knee replacement History of knee replacement History of knee replacement Pulmonary embolism (Resolved ~2010) Status post arthroscopy Status post arthroscopy Status post delivery (01/27/87) Status post delivery (04/08/90) Status post discectomy Status post hysterectomy Status post laminectomy Family History (Updated 10/01/14 @ 00:00 by Conversion Provider) Father Emphysema/COPD Grandfather Heart disease Grandmother Diabetes mellitus Heart disease Mother Cancer Diabetes mellitus Heart disease Hypertension High cholesterol Grandmother Cancer Social History household members: spouse and children Smoking Status: Never smoker Family & Social History Family History Father Emphysema/COPD Grandfather Heart disease Grandmother Diabetes mellitus Heart disease Mother Cancer Diabetes mellitus Heart disease Hypertension High cholesterol Grandmother Cancer Social History: household members spouse,children Tobacco & Substance use: Smoking Status Never smoker Meds Home Medications and Allergies Home Medications Medication Instructions Recorded Confirmed Type cholecalciferol (vitamin D3) 5,000 unit PO DIRECTED #0 10/15/17 03/30/19 History Disabled Parking Permit 1 dev MISCELLANEOUS PRN PRN 04/13/18 03/30/19 History oxycodone 1 - 2 tab PO Q3HP PRN 04/13/18 03/30/19 History cyclobenzaprine 10 mg tablet 10 mg PO TID PRN #90 tab 05/11/18 03/30/19 Rx trazodone 50 mg tablet 100 mg PO BEDTIME #180 tab 05/11/18 03/30/19 Rx calcium carbonate 600 mg calcium 600 mg PO BID tab 05/23/18 03/30/19 History (1,500 mg) tablet thyroid (pork) [[place] Thyroid] 60 mg PO QDAY #90 tab 10/17/18 03/30/19 Rx lisinopril 10 mg tablet 10 mg PO BID #360 tab 10/25/18 03/30/19 Rx omeprazole 20 mg capsule,delayed 20 mg PO BID #60 cap 11/14/18 03/30/19 Rx release citalopram 20 mg tablet 40 mg PO DAILY #180 tab 11/15/18 03/30/19 Rx etodolac 400 mg tablet 400 mg PO BID #180 tab 12/21/18 03/30/19 Rx pramipexole 0.125 mg tablet 0.125 mg PO .COMPLEX #360 tab 02/20/19 03/30/19 Rx spironolactone 25 mg tablet See Rx Instructions .ROUTE 03/28/19 03/30/19 Rx .COMPLEX #180 tablet acetaminophen [Tylenol Extra 1,000 mg PO Q6H PRN 03/30/19 03/30/19 History Strength] Allergies Allergy/AdvReac Type Severity Reaction Status Date / Time amoxicillin [AMOXICILLIN] Allergy Severe HIVES Verified 12/12/18 09:13 Sulfa (Sulfonamide Allergy Severe MOUTH Verified 12/12/18 09:13 Antibiotics) LESIONS [SULFA (SULFONAMIDE ANTIBIOTICS)] iodine [IODINE] AdvReac Severe VAGINAL Verified 12/12/18 09:13 BURNING W/DOUCHE, TOPICAL IS O.K. Review of Systems Review of Systems ROS Unobtainable: All systems reviewed & are unremarkable except as noted in HPI and below Musculoskeletal Comments: Back pain. Peripheral neuropathy. Fibromyalgia. Exam Vital Signs (past 8 hours): - 03/30/19 10:21 Temperature 97.4 F L Pulse Rate 98 H Respiratory Rate 16 Blood Pressure 94/75 Pulse Oximetry 99 Oxygen Delivery Method Room Air Narrative Exam Narrative: Pleasant cooperative patient no apparent distress. Lungs are clear to auscultation. No rales or rhonchi. Heart regular rate and rhythm no murmur gallop. Abdomen is soft nontender without mass. No obvious hernias. Patient is alert and oriented x3. Assessment & Plan Assessment & Plan narrative: The patient for a screening colonoscopy. I have discussed the procedure with them. Risks of bleeding, perforation which would necessitate major operation, failure to find remove all lesions, the potential tattoo were all discussed. All questions were answered. They wished to proceed.
--- NOTE | 2019-03-30 11:05 | PM.PREOP ---
Pre-operative Note Interval Note History & Physical reviewed/Exam performed by Physician: Yes Changes to H&P: No ASA Class (for procedural sedation): II
[2019-03-30] MEDS: MIDAZOLAM 5 MG/5 ML VIAL IV (11:24)
[2019-03-30] MEDS: fentaNYL 250 MCG/5 ML INJ IV (11:24)
--- NOTE | 2019-03-30 11:27 | PM.OP.ENDO ---
Operative Date/Time/Diagnoses Date of procedure: 03/30/19 Time of procedure: 11:27 Pre-op diagnosis: Screening exam. Post-op diagnosis: same (Incomplete exam due to prep) Procedure & Clinicians Study performed: Flex sig Same procedure as scheduled: No Indications: Screening for colon cancer Surgeon: Vinod Chinchilla Procedure Notes SCOAP/Timeout: Performed Procedure in detail: The patient is placed in left lateral decubitus position underwent IV sedation directed by the surgeon consisting of fentanyl and Versed. Digital exam was unremarkable. Scope was inserted I immediately encountered liquid stool. I began to progressed to the colon slowly. Liquid stool continued to be a problem until he reached 40 cm where I encountered liquid and formed stool. It will I was unable to pass beyond this area and therefore the procedure was abandoned. A did not get a good look at the mucosa to 40 cm because of the stool. Scope withdrawal time: Not applicable Sedation minutes: 8 Findings: other findings (Incomplete exam) Specimen(s): none sent Complications: none Post-procedure Recommendations: Other recommendation (Repeat colonoscopy with special prep.) Follow up: weeks (3-6 weeks. Will be scheduled.) Disposition: PACU
[2019-03-30 11:30] VITALS: BP 88/55; PULSE 77; RESP 12; TEMP 36.4; O2SAT 93
[2019-03-30 11:35] VITALS: BP 90/55; PULSE 86; RESP 17; TEMP 36.8; O2SAT 95
[2019-03-30 11:40] VITALS: BP 98/63; PULSE 77; RESP 16; TEMP 37; O2SAT 98
[2019-03-30 11:55] VITALS: BP 100/60; PULSE 80; RESP 19; TEMP 36.9; O2SAT 98
== END 2019-03-30 12:02 | disposition home or self-care (01) ==
PROVIDERS: PCP Family Medicine; Visit Provider Specialist
PROC: 0DJD8ZZ Inspection of Lower Intestinal Tract, Via Natural or Artificial Opening Endoscopic (ICD-10-PCS; CPT 45378; principal; 2019-03-30 10:45)
DX: Z86.010 Personal history of colon polyps (principal); Z53.09 Procedure and treatment not carried out because of other contraindication
CPT/HCPCS: G0104; 99152; J2250; J3010

== ENCOUNTER 2019-04-13 06:33 | Day surgery (SDC) | payer OTHER, SELFPAY ==
[2019-04-13 07:49] VITALS: BMI 35.0
[2019-04-13 07:54] VITALS: BP 104/68; PULSE 77; RESP 17; TEMP 36.6; O2SAT 100
[2019-04-13] MEDS: SODIUM CHLORIDE 0.9% 1,000 ML 200 ML IV (08:06)
--- NOTE | 2019-04-13 08:15 | PM.PREOP ---
Pre-operative Note Interval Note History & Physical reviewed/Exam performed by Physician: Yes Changes to H&P: Yes H&P completed within 30 days and has changed as indicated here:: note 03/30 prep went well this time ASA Class (for procedural sedation): II
[2019-04-13] MEDS: MIDAZOLAM 5 MG/5 ML VIAL IV (09:07)
[2019-04-13] MEDS: fentaNYL 250 MCG/5 ML INJ IV (09:08)
[2019-04-13 09:10] VITALS: BP 111/65; PULSE 89; RESP 18; TEMP 37.6; O2SAT 98
--- NOTE | 2019-04-13 09:12 | PM.OP.ENDO ---
Operative Date/Time/Diagnoses Date of procedure: 04/13/19 Time of procedure: 09:04 Pre-op diagnosis: Screening exam for colon cancer. Last colonoscopy over 5 years ago. Personal history of polyps. Post-op diagnosis: same (Diverticulosis. No polyps found.) Procedure & Clinicians Study performed: Colonoscopy Same procedure as scheduled: Yes Indications: Screening Surgeon: Vinod Chinchilla Procedure Notes SCOAP/Timeout: Performed Procedure in detail: The patient was placed in the left lateral decubitus position and underwent IV sedation directed by the surgeon consisting of fentanyl and Versed. Digital exam was unremarkable. The scope was inserted and advanced through the rectum into the sigmoid, descending, transverse, and ascending colon. Diverticulosis was seen. The cecum was reached identified by the ileocecal valve and the appendiceal opening. The scope was gradually brought out. No Polyps were found. The scope ultimately was retroflexed in the rectum. The appearance was normal. The scope was removed and the patient tolerated the procedure well. Prep was good. Scope withdrawal time: 10 minutes Sedation minutes: 34 Post-procedure Recommendations: Colonscopy in 5 years (Due to history of polyps) Follow up: as needed Disposition: PACU
[2019-04-13 09:14] VITALS: BP 106/67; PULSE 71; RESP 13; O2SAT 99
[2019-04-13 09:19] VITALS: BP 120/68; PULSE 79; RESP 13; TEMP 36.9; O2SAT 99
[2019-04-13 09:25] VITALS: BP 103/60; PULSE 77; RESP 15; O2SAT 100
[2019-04-13 09:40] VITALS: BP 105/65; PULSE 77; RESP 16; TEMP 36.9; O2SAT 100
== END 2019-04-13 09:45 | disposition home or self-care (01) ==
PROVIDERS: PCP Family Medicine; Visit Provider Specialist
PROC: 0DJD8ZZ Inspection of Lower Intestinal Tract, Via Natural or Artificial Opening Endoscopic (ICD-10-PCS; CPT 45378; principal; 2019-04-13 07:45)
DX: Z86.010 Personal history of colon polyps (principal); I10 Essential (primary) hypertension; E03.9 Hypothyroidism, unspecified; K57.30 Diverticulosis of large intestine without perforation or abscess without bleeding
CPT/HCPCS: G0105; 99152; 99153; J2250; J3010

== ENCOUNTER → 2019-05-09 09:22 | Outpatient (CLI) | payer OTHER, SELFPAY ==
[2019-05-09 10:37] LABS: Add Manual Diff / Slide Review NO; Basophils Absolute Auto 0 /uL (0-100); Basophils Percent Auto 0.7 % (0-2); Eosinophils Absolute Auto 200 /uL (0-450); Eosinophils Percent Auto 2.7 % (2-4); Hemoglobin 12.4 g/dL (12.0-16.0); Lymphocytes Absolute Auto 1900 /uL (1100-4500); Lymphocytes Percent Auto 33.3 % (25-40); Mean Corpuscular HGB Conc 33.6 % (30-36); Mean Corpuscular Hemoglobin 29.9 PG (26-34); Mean Corpuscular Volume 89.1 fL (80-100); Monocytes Absolute Auto 600 /uL (0-900); Monocytes Percent Auto 10.4 % (3-14); Neutrophils Absolute Auto 3000 /uL (1500-7000); Neutrophils Percent Auto 52.9 % (50-75); Platelet Count 245 X10^3/uL (150-400); Red Blood Cell Count 4.15 X10^6/uL (4.0-5.2); Red Cell Distribution Width 14.7 % (11.6-14.8); White Blood Cell Count 5.7 X10^3/uL (4.5-11.0)
[2019-05-09 11:04] LABS: Alanine Aminotransferase 20 IU/L (9-52); Albumin 4.2 g/dL (3.5-5.0); Albumin Globulin Ratio 1.4 (1.0-2.8); Alkaline Phosphatase 142 U/L (38-126); Aspartate Aminotransferase 22 IU/L (14-36); Bilirubin Total 0.6 mg/dL (0.2-1.3); Blood Urea Nitrogen 19 mg/dL (7-17); Calcium 10.6 mg/dL (8.4-10.2); Carbon Dioxide 30 mmol/L (22-32); Chloride 97 mmol/L (98-107); Cholesterol 156 mg/dL (140-199); Estimated Glomerular Filt Rate 56.9 mL/min (>60); Globulin 3.1 g/dL (1.7-4.1); Glucose 82 mg/dL (70-100); HDL Cholesterol 82 mg/dL (40-60); HEMOLYSIS < 15 (0-50); LDL Cholesterol Calculated 61 mg/dL (<100); Potassium 5.3 mmol/L (3.4-5.1); Sodium 131 mmol/L (137-145); Total Protein 7.3 g/dL (6.3-8.2); Triglycerides 67 mg/dL (35-150)
[2019-05-09 11:35] LABS: Thyroid Stimulating Hormone 1.12 uIU/mL (0.47-4.68)
== END ==
PROVIDERS: PCP Family Medicine; Visit Provider Family Medicine
DX: Z13.220 Encounter for screening for lipoid disorders (principal); D64.9 Anemia, unspecified; E07.9 Disorder of thyroid, unspecified; N18.1 Chronic kidney disease, stage 1
CPT/HCPCS: 36415; 80053; 80061; 84443; 85025

== ENCOUNTER → 2019-05-31 14:39 | Outpatient (CLI) | payer OTHER, SELFPAY | PROVIDERS: PCP Family Medicine; Visit Provider Family Medicine | DX: M85.851 Other specified disorders of bone density and structure, right thigh (principal); Z78.0 Asymptomatic menopausal state; E07.9 Disorder of thyroid, unspecified | CPT/HCPCS: 77080; 77081 ==

== ENCOUNTER → 2020-05-17 07:44 | Outpatient (CLI) | payer OTHER, SELFPAY ==
[2020-05-17 08:26] LABS: Add Manual Diff / Slide Review NO; Basophils Absolute Auto 0 /uL (0-100); Basophils Percent Auto 0.7 % (0-2); Eosinophils Absolute Auto 300 /uL (0-450); Eosinophils Percent Auto 5.3 % (2-4); Hematocrit 36.4 % (36-46); Lymphocytes Absolute Auto 2100 /uL (1100-4500); Lymphocytes Percent Auto 37.1 % (25-40); Mean Corpuscular HGB Conc 33.1 % (30-36); Mean Corpuscular Hemoglobin 31.4 PG (26-34); Mean Corpuscular Volume 94.9 fL (80-100); Monocytes Absolute Auto 600 /uL (0-900); Monocytes Percent Auto 10.5 % (3-14); Neutrophils Absolute Auto 2600 /uL (1500-7000); Neutrophils Percent Auto 46.4 % (50-75); Platelet Count 250 X10^3/uL (150-400); Red Blood Cell Count 3.84 X10^6/uL (4.0-5.2); White Blood Cell Count 5.6 X10^3/uL (4.5-11.0)
[2020-05-17 08:52] LABS: Alanine Aminotransferase 18 IU/L (<35); Albumin 3.9 g/dL (3.5-5.0); Albumin Globulin Ratio 1.3 (1.0-2.8); Alkaline Phosphatase 130 U/L (38-126); Aspartate Aminotransferase 26 IU/L (14-36); BUN Creatinine Ratio 30.1 (6-22); Bilirubin Total 0.7 mg/dL (0.2-1.3); Blood Urea Nitrogen 37 mg/dL (7-17); Calcium 9.2 mg/dL (8.4-10.2); Carbon Dioxide 27 mmol/L (22-32); Chloride 101 mmol/L (98-107); Cholesterol 154 mg/dL (140-199); Estimated Glomerular Filt Rate 44.7 mL/min (>60); Globulin 2.9 g/dL (1.7-4.1); Glucose 81 mg/dL (70-100); HDL Cholesterol 78 mg/dL (40-60); HEMOLYSIS < 15 (0-50); LDL Cholesterol Calculated 66 mg/dL (<100); Potassium 4.4 mmol/L (3.4-5.1); Sodium 131 mmol/L (137-145); Total Protein 6.8 g/dL (6.3-8.2); Triglycerides 51 mg/dL (35-150)
== END ==
PROVIDERS: PCP Family Medicine; Referring Provider Family Medicine; Visit Provider Family Medicine
DX: I10 Essential (primary) hypertension (principal); N18.1 Chronic kidney disease, stage 1
CPT/HCPCS: 36415; 80053; 80061; 84443; 85025

== ENCOUNTER → 2020-05-21 11:21 | Outpatient (CLI) | payer OTHER, SELFPAY ==
[2020-05-21 14:25] LABS: BUN Creatinine Ratio 25.6 (6-22); Blood Urea Nitrogen 30 mg/dL (7-17); Carbon Dioxide 28 mmol/L (22-32); Chloride 100 mmol/L (98-107); Estimated Glomerular Filt Rate 47.3 mL/min (>60); Glucose 73 mg/dL (70-100); HEMOLYSIS < 15 (0-50); Potassium 4.4 mmol/L (3.4-5.1); Sodium 134 mmol/L (137-145)
== END ==
PROVIDERS: PCP Family Medicine; Referring Provider Family Medicine; Visit Provider Family Medicine
DX: N18.1 Chronic kidney disease, stage 1 (principal)
CPT/HCPCS: 36415; 80048

== ENCOUNTER → 2020-06-21 09:52 | Outpatient (CLI) | payer OTHER, SELFPAY ==
[2020-06-21 11:03] LABS: BUN Creatinine Ratio 18.2 (6-22); Blood Urea Nitrogen 22 mg/dL (7-17); Calcium 9.5 mg/dL (8.4-10.2); Carbon Dioxide 30 mmol/L (22-32); Chloride 100 mmol/L (98-107); Estimated Glomerular Filt Rate 45.5 mL/min (>60); Glucose 92 mg/dL (70-100); HEMOLYSIS < 15 (0-50); Potassium 5.2 mmol/L (3.4-5.1); Sodium 133 mmol/L (137-145)
== END ==
PROVIDERS: PCP Family Medicine; Referring Provider Family Medicine; Visit Provider Family Medicine
DX: N18.1 Chronic kidney disease, stage 1 (principal)
CPT/HCPCS: 36415; 80048

== ENCOUNTER → 2020-11-22 15:02 | Outpatient (CLI) | payer OTHER, SELFPAY ==
[2020-11-22 16:54] LABS: Alanine Aminotransferase 16 IU/L (<35); Albumin 4.1 g/dL (3.5-5.0); Albumin Globulin Ratio 1.4 (1.0-2.8); Alkaline Phosphatase 125 U/L (38-126); Aspartate Aminotransferase 25 IU/L (14-36); BUN Creatinine Ratio 28.2 (6-22); Bilirubin Total 0.4 mg/dL (0.2-1.3); Blood Urea Nitrogen 31 mg/dL (7-17); Calcium 9.3 mg/dL (8.4-10.2); Carbon Dioxide 25 mmol/L (22-32); Chloride 100 mmol/L (98-107); Estimated Glomerular Filt Rate 50.8 mL/min (>60); Globulin 2.9 g/dL (1.7-4.1); Glucose 91 mg/dL (70-100); HEMOLYSIS < 15 (0-50); Potassium 4.7 mmol/L (3.4-5.1); Sodium 133 mmol/L (137-145)
== END ==
PROVIDERS: PCP Family Medicine; Referring Provider Family Medicine; Visit Provider Family Medicine
DX: E87.1 Hypo-osmolality and hyponatremia (principal); E87.5 Hyperkalemia; N18.1 Chronic kidney disease, stage 1
CPT/HCPCS: 36415; 80053

== ENCOUNTER → 2021-02-25 13:43 | Outpatient (CLI) | payer OTHER, SELFPAY | PROVIDERS: PCP Family Medicine; Visit Provider Registered Nurse | DX: N39.0 Urinary tract infection, site not specified (principal) | CPT/HCPCS: 87086 ==

== ENCOUNTER → 2021-03-25 11:41 | Outpatient (CLI) | payer OTHER, SELFPAY ==
[2021-03-25 12:58] LABS: Bilirubin Urine UA NEGATIVE (NEGATIVE); Color Urine UA YELLOW; Glucose Urine UA NEGATIVE (Negative); Ketones Urine UA NEGATIVE (NEGATIVE); Leukocyte Esterase Urine UA 1+ (NEGATIVE); Nitrite Urine UA NEGATIVE (Negative); Occult Blood Urine UA 1+ (Negative); Protein Urine UA NEGATIVE (Negative); Specific Gravity Urine UA <=1.005 (1.000-1.035); Urobilinogen Urine UA 0.2 E.U./dL (0.2)
[2021-03-25 13:06] LABS: Alanine Aminotransferase 18 IU/L (<35); Albumin Globulin Ratio 1.5 (1.0-2.8); Alkaline Phosphatase 103 U/L (38-126); Aspartate Aminotransferase 23 IU/L (14-36); BUN Creatinine Ratio 35.5 (6-22); Bilirubin Total 0.6 mg/dL (0.2-1.3); Blood Urea Nitrogen 39 mg/dL (7-17); Calcium 9.8 mg/dL (8.4-10.2); Carbon Dioxide 28 mmol/L (22-32); Chloride 104 mmol/L (98-107); Estimated Glomerular Filt Rate 50.8 mL/min (>60); Globulin 2.7 g/dL (1.7-4.1); Glucose 70 mg/dL (70-100); HEMOLYSIS < 15 (0-50); Potassium 4.6 mmol/L (3.4-5.1); Sodium 138 mmol/L (137-145); Total Protein 6.7 g/dL (6.3-8.2)
[2021-03-25 13:28] LABS: Appearance Urine UA Slightly Cloudy
[2021-03-25 13:33] LABS: Bacteria Urine Occasional (0-1); RBC Urine 0-1/HPF (0-5/HPF); Squamous Epithelial Cell Urine 0-1 /HPF (0-5/HPF); WBC Urine 10-30/HPF (0-5/HPF)
[2021-03-25 13:34] LABS: Culture Indicated Urine Specimen Cultured
== END ==
PROVIDERS: PCP Family Medicine; Referring Provider Family Medicine; Visit Provider Family Medicine
DX: E87.1 Hypo-osmolality and hyponatremia (principal); E87.5 Hyperkalemia; N18.1 Chronic kidney disease, stage 1; I10 Essential (primary) hypertension; R30.0 Dysuria
CPT/HCPCS: 36415; 80053; 81001; 87077; 87086; 87186

== ENCOUNTER → 2021-05-21 08:26 | Outpatient (CLI) | payer OTHER, SELFPAY ==
[2021-05-21 10:03] LABS: Add Manual Diff / Slide Review NO; Alanine Aminotransferase 19 IU/L (<35); Albumin 4.4 g/dL (3.5-5.0); Albumin Globulin Ratio 1.6 (1.0-2.8); Alkaline Phosphatase 112 U/L (38-126); Aspartate Aminotransferase 25 IU/L (14-36); BUN Creatinine Ratio 22.2 (6-22); Basophils Absolute Auto 0 /uL (0-100); Basophils Percent Auto 0.7 % (0-2); Bilirubin Total 0.6 mg/dL (0.2-1.3); Blood Urea Nitrogen 22 mg/dL (7-17); Calcium 10.2 mg/dL (8.4-10.2); Carbon Dioxide 29 mmol/L (22-32); Chloride 106 mmol/L (98-107); Cholesterol 164 mg/dL (140-199); Eosinophils Absolute Auto 400 /uL (0-450); Eosinophils Percent Auto 7.9 % (2-4); Estimated Glomerular Filt Rate 57.2 mL/min (>60); Globulin 2.8 g/dL (1.7-4.1); Glucose 86 mg/dL (80-110); HDL Cholesterol 95 mg/dL (40-60); HEMOLYSIS < 15 (0-50); Hematocrit 35.5 % (36-46); Hemoglobin 11.6 g/dL (12.0-16.0); LDL Cholesterol Calculated 56 mg/dL (<100); Lymphocytes Absolute Auto 2000 /uL (1100-4500); Mean Corpuscular HGB Conc 32.7 % (30-36); Mean Corpuscular Hemoglobin 31.8 PG (26-34); Mean Corpuscular Volume 97.2 fL (80-100); Monocytes Absolute Auto 500 /uL (0-900); Monocytes Percent Auto 10.2 % (3-14); Neutrophils Absolute Auto 2000 /uL (1500-7000); Neutrophils Percent Auto 40.2 % (50-75); Platelet Count 272 X10^3/uL (150-400); Red Blood Cell Count 3.65 X10^6/uL (4.0-5.2); Sodium 140 mmol/L (137-145); Total Protein 7.2 g/dL (6.3-8.2); Triglycerides 63 mg/dL (35-150); White Blood Cell Count 4.9 X10^3/uL (4.5-11.0)
[2021-05-21 10:43] LABS: Free T3, Triiodothyronine Free 4.39 pg/mL (2.77-5.27); Free T4, Direct Thyroxine 0.99 ng/dL (0.78-2.19)
== END ==
PROVIDERS: PCP Family Medicine; Referring Provider Family Medicine; Visit Provider Family Medicine
DX: E03.9 Hypothyroidism, unspecified (principal); E09.9 Drug or chemical induced diabetes mellitus without complications; E87.1 Hypo-osmolality and hyponatremia; E87.5 Hyperkalemia; I10 Essential (primary) hypertension; R53.83 Other fatigue
CPT/HCPCS: 36415; 80053; 80061; 84439; 84443; 84481; 85025

== ENCOUNTER → 2021-08-12 08:30 | Outpatient (CLI) | payer OTHER, SELFPAY ==
--- NOTE | 2021-08-12 08:31 | DI.RAD.S_ITS ---
PROCEDURE: XR ELBOW RT MIN 3V INDICATIONS: elbow pain after fall TECHNIQUE: 3 views of the elbow were acquired. COMPARISON: None. FINDINGS: Bones: No fractures or dislocations. No suspicious bony lesions. Mild degenerative joint disease at the elbow. Soft tissues: No elbow joint effusion. No suspicious soft tissue calcifications. IMPRESSION: Mild degenerative joint disease. Dictated by: Alicia Martinez M.D. on 08/12/2021 at 17:08 Approved by: Alicia Martinez M.D. on 08/12/2021 at 17:10
== END ==
PROVIDERS: PCP Family Medicine; Referring Provider Family Medicine; Visit Provider Family Medicine
DX: M19.021 Primary osteoarthritis, right elbow (principal); M25.521 Pain in right elbow
CPT/HCPCS: 73080

== ENCOUNTER → 2021-08-29 07:47 | Outpatient (CLI) | payer OTHER, SELFPAY ==
[2021-08-29 08:54] LABS: Add Manual Diff / Slide Review NO; Basophils Absolute Auto 0 /uL (0-100); Basophils Percent Auto 0.8 % (0-2); Eosinophils Absolute Auto 300 /uL (0-450); Eosinophils Percent Auto 6.6 % (2-4); Hematocrit 37.3 % (36-46); Hemoglobin 12.7 g/dL (12.0-16.0); Lymphocytes Absolute Auto 1800 /uL (1100-4500); Lymphocytes Percent Auto 39.9 % (25-40); Mean Corpuscular HGB Conc 34.1 % (30-36); Mean Corpuscular Hemoglobin 31.8 PG (26-34); Mean Corpuscular Volume 93.3 fL (80-100); Monocytes Absolute Auto 500 /uL (0-900); Neutrophils Absolute Auto 1900 /uL (1500-7000); Neutrophils Percent Auto 41.7 % (50-75); Platelet Count 254 X10^3/uL (150-400); Red Cell Distribution Width 13.8 % (11.6-14.8); White Blood Cell Count 4.4 X10^3/uL (4.5-11.0)
[2021-08-29 09:04] LABS: HEMOLYSIS < 15 (0-50); Iron 77 ug/dL (37-170)
[2021-08-29 09:09] LABS: Alanine Aminotransferase 22 IU/L (<35); Albumin 4.4 g/dL (3.5-5.0); Albumin Globulin Ratio 1.6 (1.0-2.8); Alkaline Phosphatase 104 U/L (38-126); Aspartate Aminotransferase 27 IU/L (14-36); Bilirubin Total 0.6 mg/dL (0.2-1.3); Blood Urea Nitrogen 29 mg/dL (7-17); Carbon Dioxide 30 mmol/L (22-32); Chloride 100 mmol/L (98-107); Estimated Glomerular Filt Rate 47.7 mL/min (>60); Globulin 2.8 g/dL (1.7-4.1); Glucose 82 mg/dL (80-110); HEMOLYSIS < 15 (0-50); Potassium 4.6 mmol/L (3.4-5.1); Sodium 133 mmol/L (137-145); Total Protein 7.2 g/dL (6.3-8.2)
[2021-08-29 09:17] LABS: Percent Iron Saturation 24 % (15-50); Total Iron Binding Capacity 324 ug/dL (265-497); Transferrin 270 mg/dL (206-381)
== END ==
PROVIDERS: PCP Family Medicine; Referring Provider Family Medicine; Visit Provider Family Medicine
DX: D64.9 Anemia, unspecified (principal); D72.10 Eosinophilia, unspecified; E87.1 Hypo-osmolality and hyponatremia; E87.5 Hyperkalemia; I10 Essential (primary) hypertension; R53.83 Other fatigue
CPT/HCPCS: 36415; 80053; 83540; 83550; 85025

== ENCOUNTER → 2021-08-31 13:35 | Outpatient (CLI) | payer OTHER, SELFPAY ==
--- NOTE | 2021-08-31 | DI.MRI.S_ITS ---
PROCEDURE: MR LUMBAR SPINE WO CON INDICATIONS: LOW BACK PAIN TECHNIQUE: Noncontrast sagittal T1 spin echo and T2 fast echo, sagittal STIR, axial T1 and T2 fast spin echo through the lumbar spine. In cases with scoliosis, additional coronal T2 fast spin echo may be performed. COMPARISON: [facility], MR, MR LUMBAR SPINE WO CON, 05/24/2018, 7:52. FINDINGS: Image quality: Excellent. Alignment and Curvature: There is S-shaped scoliosis, unchanged. Bone Marrow: Marrow is of normal overall signal. There is minimal reactive endplate changes at L1-2, L2-3, L3-4. No acute vertebral body compression fractures. Spinal Cord: Conus medullaris terminates at the L1 level. Visualized cord demonstrates normal signal and size. Paraspinous Soft Tissues: No paravertebral masses. Multilevel moderate to severe disc dessiction is present throughout the lumbar spine. L1-L2: Mild disc bulge or spinal stenosis. No foraminal narrowing with facet/ligamentum flavum hypertrophy. L2-L3: Mild disc bulge with moderate spinal stenosis. Mild left foraminal narrowing with facet/ligamentum flavum hypertrophy. L3-L4: Mild disc bulge with moderate spinal stenosis. Moderate left foraminal narrowing with facet/ligamentum flavum hypertrophy, slightly progressive.. L4-L5: Mild disc bulge without spinal stenosis. Seere right and moderate left foraminal narrowing with facet/ligamentum flavum hypertrophy. Previous disc extrusion is no longer visualized. Left hemilaminectomy L5-S1: Mild disc bulge without spinal stenosis. Modeate right foraminal narrowing with facet/ligamentum flavum hypertrophy, slightly progressive.. IMPRESSION: Multilevel degenerative changes, with small areas of interval progression, as above. Previous extrusion at L4-5 no longer visualized. Dictated by: Mer Hearn M.D. on 09/01/2021 at 14:09 Approved by: Mer Hearn M.D. on 09/01/2021 at 14:56
== END ==
PROVIDERS: PCP Family Medicine; Referring Provider Acupuncturist; Visit Provider Acupuncturist
DX: M47.816 Spondylosis without myelopathy or radiculopathy, lumbar region (principal); M47.817 Spondylosis without myelopathy or radiculopathy, lumbosacral region
CPT/HCPCS: 72148

== ENCOUNTER → 2021-11-28 07:59 | Outpatient (CLI) | payer OTHER, SELFPAY ==
[2021-11-28 08:44] LABS: BUN Creatinine Ratio 26.5 (6-22); Blood Urea Nitrogen 26 mg/dL (7-17); Estimated Glomerular Filt Rate > 60 mL/min (>60)
== END ==
PROVIDERS: PCP Family Medicine; Referring Provider Family Medicine; Visit Provider Family Medicine
DX: N18.30 Chronic kidney disease, stage 3 unspecified (principal)
CPT/HCPCS: 36415; 82565; 84520

== ENCOUNTER → 2022-05-14 15:27 | Outpatient (CLI) | payer OTHER, SELFPAY ==
[2022-05-14 16:32] LABS: Add Manual Diff / Slide Review NO; Basophils Absolute Auto 0 /uL (0-100); Basophils Percent Auto 0.5 % (0-2); Eosinophils Absolute Auto 100 /uL (0-450); Eosinophils Percent Auto 2.3 % (2-4); Hematocrit 38.4 % (36-46); Hemoglobin 12.9 g/dL (12.0-16.0); Lymphocytes Absolute Auto 1400 /uL (1100-4500); Lymphocytes Percent Auto 26.5 % (25-40); Mean Corpuscular HGB Conc 33.7 % (30-36); Monocytes Absolute Auto 500 /uL (0-900); Monocytes Percent Auto 8.6 % (3-14); Neutrophils Absolute Auto 3300 /uL (1500-7000); Neutrophils Percent Auto 62.1 % (50-75); Platelet Count 260 X10^3/uL (150-400); Red Blood Cell Count 4.17 X10^6/uL (4.0-5.2); Red Cell Distribution Width 13.1 % (11.6-14.8); White Blood Cell Count 5.3 X10^3/uL (4.5-11.0)
[2022-05-14 16:42] LABS: Alanine Aminotransferase 19 IU/L (<35); Albumin 4.2 g/dL (3.5-5.0); Albumin Globulin Ratio 1.4 (1.0-2.8); Alkaline Phosphatase 111 U/L (38-126); Aspartate Aminotransferase 21 IU/L (14-36); BUN Creatinine Ratio 17.4 (6-22); Bilirubin Total 0.5 mg/dL (0.2-1.3); Blood Urea Nitrogen 19 mg/dL (7-17); Calcium 9.4 mg/dL (8.4-10.2); Carbon Dioxide 28 mmol/L (22-32); Chloride 99 mmol/L (98-107); Estimated Glomerular Filt Rate 58 mL/min (>60); Globulin 2.9 g/dL (1.7-4.1); Glucose 108 mg/dL (80-110); HEMOLYSIS < 15 (0-50); Phosphorous 3.7 mg/dL (2.8-4.1); Potassium 4.2 mmol/L (3.4-5.1); Sodium 137 mmol/L (137-145); Total Protein 7.1 g/dL (6.3-8.2)
[2022-05-14 18:32] LABS: Erythrocyte Sedimentation Rate 20 MM/HR (0-20)
== END ==
PROVIDERS: PCP Family Medicine; Referring Provider Orthopaedic Surgery Foot and Ankle Surgery; Visit Provider Orthopaedic Surgery Foot and Ankle Surgery
DX: T84.033A Mechanical loosening of internal left knee prosthetic joint, initial encounter (principal)
CPT/HCPCS: 36415; 80053; 80069; 85025; 85651

== ENCOUNTER → 2022-05-28 10:01 | Outpatient (CLI) | payer OTHER, SELFPAY ==
--- NOTE | 2022-05-28 | DI.NM.S_ITS ---
PROCEDURE: NM BONE 3 PHASE RADIOPHARMACEUTICAL: 18 0.0 mCi Tc-99m MDP IV. INDICATIONS: MECHANICAL LOOSENING OF OTH INTERNAL PROSTHETIC TECHNIQUE: Multiple bone scintigrams were obtained after intravenous injection of Tc-99m MDP, including flow, blood pool, and delayed images centered to the region of interest. COMPARISON: [facility], CR, XR KNEE ARTHRITIC SERIES BI, 05/14/2022, 13:47. FINDINGS: A triple phase bone scan was obtained, including flow, blood pool and delayed images centered to the knees. The flow and blood pool images demonstrate symmetrical vascular activity in the lower extremity. Delayed images demonstrate bilateral total knee arthroplasty. There is increased activity around knee prosthesis bilaterally, primarily involving the prosthesis-bone interface in proximal tibia. IMPRESSION: 1. Increased activity around knee prostheses bilaterally along the prosthesis/bone interface in proximal tibia. The finding could indicate early prosthesis loosening. 2. Normal flow and blood pool images. No findings to suggest prosthesis infection. Dictated by: Alicia Martinez M.D. on 05/28/2022 at 16:39 Approved by: Alicia Martinez M.D. on 05/29/2022 at 9:29
== END ==
PROVIDERS: PCP Family Medicine; Referring Provider Orthopaedic Surgery Foot and Ankle Surgery; Visit Provider Orthopaedic Surgery Foot and Ankle Surgery
DX: T84.038A Mechanical loosening of other internal prosthetic joint, initial encounter (principal)
CPT/HCPCS: 78315; A9503

== ENCOUNTER → 2022-06-03 08:47 | Outpatient (CLI) | payer OTHER, SELFPAY ==
[2022-06-03 10:20] LABS: Vitamin D 25 Hydroxy (D3) 49.4 ng/mL (30.0-100.0)
== END ==
PROVIDERS: PCP Family Medicine; Referring Provider Orthopaedic Surgery; Visit Provider Orthopaedic Surgery
DX: M85.862 Other specified disorders of bone density and structure, left lower leg (principal)
CPT/HCPCS: 36415; 82306

== ENCOUNTER → 2022-06-16 15:08 | Outpatient (CLI) | payer OTHER, SELFPAY | PROVIDERS: PCP Family Medicine; Referring Provider Orthopaedic Surgery; Visit Provider Orthopaedic Surgery | DX: M85.852 Other specified disorders of bone density and structure, left thigh (principal); Z13.820 Encounter for screening for osteoporosis; Z78.0 Asymptomatic menopausal state; Z90.710 Acquired absence of both cervix and uterus | CPT/HCPCS: 77080 ==

== ENCOUNTER → 2022-08-13 07:49 | Outpatient (CLI) | payer OTHER, SELFPAY ==
[2022-08-13 08:36] LABS: Add Manual Diff / Slide Review NO; Basophils Absolute Auto 0 /uL (0-100); Basophils Percent Auto 0.6 % (0-2); Eosinophils Absolute Auto 300 /uL (0-450); Eosinophils Percent Auto 5.8 % (2-4); Hematocrit 38.3 % (36-46); Hemoglobin 12.9 g/dL (12.0-16.0); Lymphocytes Absolute Auto 2400 /uL (1100-4500); Lymphocytes Percent Auto 45.7 % (25-40); Mean Corpuscular HGB Conc 33.5 % (30-36); Mean Corpuscular Hemoglobin 30.6 PG (26-34); Mean Corpuscular Volume 91.3 fL (80-100); Monocytes Absolute Auto 600 /uL (0-900); Monocytes Percent Auto 10.9 % (3-14); Neutrophils Absolute Auto 1900 /uL (1500-7000); Platelet Count 228 X10^3/uL (150-400); White Blood Cell Count 5.2 X10^3/uL (4.5-11.0)
[2022-08-13 08:50] LABS: Alanine Aminotransferase 23 IU/L (<35); Albumin 4.1 g/dL (3.5-5.0); Albumin Globulin Ratio 1.2 (1.0-2.8); Alkaline Phosphatase 130 U/L (38-126); Aspartate Aminotransferase 23 IU/L (14-36); BUN Creatinine Ratio 23.4 (6-22); Bilirubin Total 0.8 mg/dL (0.2-1.3); Blood Urea Nitrogen 22 mg/dL (7-17); Calcium 9.5 mg/dL (8.4-10.2); Carbon Dioxide 31 mmol/L (22-32); Chloride 101 mmol/L (98-107); Cholesterol 160 mg/dL (140-199); Estimated Glomerular Filt Rate > 60 mL/min (>60); Globulin 3.5 g/dL (1.7-4.1); Glucose 87 mg/dL (80-110); HDL Cholesterol 75 mg/dL (40-60); HEMOLYSIS < 15 (0-50); LDL Cholesterol Calculated 72 mg/dL (<100); Potassium 4.1 mmol/L (3.4-5.1); Sodium 137 mmol/L (137-145); Total Protein 7.6 g/dL (6.3-8.2); Triglycerides 66 mg/dL (35-150)
[2022-08-13 19:06] LABS: Free T3, Triiodothyronine Free 6.48 pg/mL (2.77-5.27); Free T4, Direct Thyroxine 1.44 ng/dL (0.78-2.19)
[2022-08-13 19:20] LABS: Thyroid Stimulating Hormone 0.844 uIU/mL (0.47-4.68)
[2022-08-14 13:04] LABS: Insulin Level Total 9.8 uIU/mL (2.6-24.9)
== END ==
PROVIDERS: PCP Family Medicine; Referring Provider Family Medicine; Visit Provider Family Medicine
DX: D64.9 Anemia, unspecified (principal); E03.9 Hypothyroidism, unspecified; D72.10 Eosinophilia, unspecified; E87.1 Hypo-osmolality and hyponatremia; E87.5 Hyperkalemia; I10 Essential (primary) hypertension; E03.8 Other specified hypothyroidism; E06.3 Autoimmune thyroiditis; F32.9 Major depressive disorder, single episode, unspecified; G47.19 Other hypersomnia; M79.7 Fibromyalgia; N18.2 Chronic kidney disease, stage 2 (mild); R42 Dizziness and giddiness
CPT/HCPCS: 36415; 80053; 80061; 83525; 84439; 84443; 84481; 85025

== ENCOUNTER → 2023-02-28 14:51 | Outpatient (CLI) | payer OTHER, SELFPAY ==
--- NOTE | 2023-02-28 | DI.ECHO.S_ITS ---
[facility]---------+ [facility] +---------+ : : [id number] : : : : [id number] : : : : Phone: [phone]---------+ Echocardiogram Report + + :Name: DEMETRIUS CASTRO Study Date: 02/28/2023 Height: 62 in : :[facility] ReadingLocation: Weight: 205 lb : : Gender: Female BSA: 1.9 m2 : :: 1960 Age: 62 yrs BP: 137/87 mmHg: :Reason For Study: Aortic stenosis : : Performed By: Azra Rock : :Referring: BRAYAN MENDOZA : + + Interpretation Summary The left ventricle is normal in size and wall thickness. The ejection fraction is estimated to be 55-60%. Diastolic parameters suggest probable normal left ventricular diastolic function and normal filling pressures. The right ventricle is normal in size and function. The right ventricular systolic pressure is estimated to be at least 21 mmHg based on an estimated right atrial pressure of 3 mm Hg. The left atrium is mildly dilated. The right atrium is normal in size. There is no hemodynamically significant valvular aortic stenosis. There is no significant valvular heart disease. The aortic root is mildly dilated. Procedure: A two-dimensional transthoracic echocardiogram with color flow and Doppler was performed. The study quality was technically good. Comparison is made with the echocardiogram of 07/29/2010. The patient was in normal sinus rhythm during the exam. Left Ventricle: The left ventricle is normal in size and wall thickness. There is no thrombus. There is no ventricular septal defect visualized. Left ventricular systolic function appears normal without focal wall motion abnormalities. The ejection fraction is estimated to be 55-60%. Diastolic parameters suggest probable normal left ventricular diastolic function and normal filling pressures. Right Ventricle: The right ventricle is normal in size and function. Atria: The left atrium is mildly dilated. The right atrium is normal in size. There is no Doppler evidence for an interatrial shunt. Mitral Valve: There is mild mitral annular calcification. There is no mitral valve stenosis. There is trace mitral regurgitation. Aortic Valve: The aortic valve is trileaflet. The aortic valve opens well. There is no hemodynamically significant valvular aortic stenosis. No aortic regurgitation is present. Tricuspid Valve: The tricuspid valve is normal in structure and function. There is a trace or physiologic amount of tricuspid regurgitation. The right ventricular systolic pressure is estimated to be at least 21 mmHg based on an estimated right atrial pressure of 3 mm Hg. Pulmonic Valve: The pulmonic valve leaflets are thin and pliable; valve motion is normal. There is trace pulmonic regurgitation. There is no significant valvular heart disease. Great Vessels: The aortic root is mildly dilated. The ascending aorta is at the upper limits of normal in size. The aortic arch could not be visualized. The IVC is of normal diameter and collapses greater than 50% with a sniff. This suggests a low right atrial pressure of 3 mm Hg. Pericardium/ Pleura There is no pericardial effusion. There is an anterior echo-free space consistent with a fat pad. There is no significant valvular heart disease. MMode/2D Measurements & Calculations LVIDd: 4.7 cm LVOT diam: 2.2 cm LVIDs: 3.4 cm Ao root diam: 3.9 cm FS: 28.5 % asc Aorta Diam: 3.5 cm EPSS: 1.3 cm IVSd: 0.82 cm LVPWd: 0.78 cm LV [place]. diameter/BSA (cm/m^2): 2.4 LV sys. diameter/BSA (cm/m^2): 1.7 LA A2 area: 25.0 cm2 RA long axis: 4.9 cm LA A4 area: 18.8 cm2 RA area: 12.0 cm2 LA length (vol): 5.8 cm RA vol: 24.8 ml LA vol: 68.4 ml RA : 12.8 ml/m2 LA vol index: 35.4 ml/m2 IVC diam: 1.6 cm RVD1 (basal): 3.1 cm TAPSE: 2.0 cm Doppler Measurements & Calculations Ao V2 max: 162.7 cm/sec LVOT Max Robby: 105.8 cm/sec Ao V2 mean: 108.7 cm/sec LV V1 max P.5 mmHg Ao max P.6 mmHg LV V1 VTI: 24.2 cm Ao mean P.2 mmHg FREDIS(I,D): 2.6 cm2 Ao V2 VTI: 36.0 cm FREDIS(V,D): 2.6 cm2 sev ratio: 0.67 FREDIS indexed to BSA (cm^2/m^2): 1.4 MV E max robby: 88.9 cm/sec TR max robby: 210.8 cm/sec MV A max robby: 69.6 cm/sec TR max P.8 mmHg MV E/A: 1.3 PA V2 max: 88.9 cm/sec Med Peak E' Robby: 9.7 cm/sec PA V2 mean: 60.2 cm/sec E/E' med: 9.2 PA mean P.6 mmHg Lat Peak E' Robby: 12.0 cm/sec PA pr(Accel): 18.6 mmHg E/E' lat: 7.4 E/e' average: 8.3 MV dec time: 0.17 sec SV(LVOT): 95.0 ml Reading Physician:05:58 PM
== END ==
PROVIDERS: PCP Family Medicine; Referring Provider Family Medicine; Visit Provider Family Medicine
DX: I34.81 Nonrheumatic mitral (valve) annulus calcification (principal); I77.810 Thoracic aortic ectasia
CPT/HCPCS: 93306

== ENCOUNTER 2023-08-19 17:41 | Emergency (ER) | payer OTHER, SELFPAY ==
[2023-08-19 17:48] VITALS: BP 152/72; PULSE 82; RESP 18; TEMP 36.9; O2SAT 99; BMI 35.8
--- NOTE | 2023-08-19 18:26 | ED_ITS ---
HPI - Extremity Problem <Cecilia Lovell PA-C - Last Filed: 08/19/23 18:45> General Chief complaint: Extremity Problem,Nontraumatic Stated complaint: rt knee surgery, pain and swelling since Time Seen by Provider: 08/19/23 17:59 History of Present Illness HPI Narrative: Patient is a 63-year-old female who is 10 days postop a revision of a right knee replacement. 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 She was doing well postoperatively but noted increased swelling and pain after a postop visit 2 days ago. She did have to ride in the car down to [place] and back- it was a long day- but since then she has had more pain and swelling. She is very consistent with keeping her leg elevated and resting. She has significant bruising around the knee and thigh. She has pain in the medial upper calf. She denies fever, chills, purulent drainage from the surgical site. She is on prophylactic antibiotics. She is taking tramadol and Tylenol for pain. She also reports an episode earlier this afternoon where she could feel her heart racing. This lasted approximately 1 minute and then stopped spontaneously. Shortly after, it recurred for approximately 1 minute and stopped again. She took her blood pressure at the time with her home cuff and it was 74/58. She took it several more times and it slowly increased. Several hours later she took her blood pressure again and it was 120s/80s. She reports drinking plenty of fluids, voiding and stooling normally. She had no chest pain or pressure with this episode. She does endorse previous episodes of her heart racing but has never been diagnosed with SVT. Related Data Home Medications Medication Instructions Recorded Confirmed cholecalciferol (vitamin D3) 125 5,000 unit PO DIRECTED ##0 10/15/17 07/23/23 mcg (5,000 unit) capsule oxycodone 5 mg tablet 1 - 2 tab PO Q3HP PRN pain 04/13/18 07/23/23 calcium carbonate 600 mg calcium 600 mg PO BID 05/23/18 07/23/23 (1,500 mg) tablet (Calcium) acetaminophen 500 mg tablet 1,000 mg PO Q6H PRN Pain (Scale 09/19/19 01/12/24 (Tylenol Extra Strength) Score 1-3) Previous Rx's Medication Instructions Recorded Disabled Parking Permit #1 ea 05/23/21 Massage therapy #1 ea 07/17/21 citalopram 40 mg tablet See Rx Instructions .Route 10/30/22 .COMPLEX #90 tabs pramipexole 0.125 mg tablet See Rx Instructions .Route 10/30/22 .COMPLEX #360 tabs spironolactone 25 mg tablet See Rx Instructions .Route 10/30/22 .COMPLEX #180 tabs trazodone 50 mg tablet 100 mg (2 x 50 mg) PO ONCE PM #180 01/29/23 tabs estradiol 0.01% (0.1 mg/gram) See Rx Instructions .Route 06/25/23 vaginal cream .COMPLEX #42.5 grams losartan 50 mg tablet 50 mg PO DAILY #90 tabs 06/25/23 baclofen 10 mg tablet 10 mg PO 3XD PRN for allergies 07/06/23 #280 tabs thyroid (pork) 60 mg tablet See Rx Instructions .Route 07/26/23 (Narberth Thyroid) .COMPLEX #90 tabs Allergies Allergy/AdvReac Type Severity Reaction Status Date / Time amoxicillin [AMOXICILLIN] Allergy Severe HIVES Verified 08/19/23 17:53 Sulfa (Sulfonamide Allergy Severe MOUTH Verified 08/19/23 17:53 Antibiotics) LESIONS [SULFA (SULFONAMIDE ANTIBIOTICS)] iodine [IODINE] AdvReac Severe VAGINAL Verified 08/19/23 17:53 BURNING W/DOUCHE, TOPICAL IS O.K. 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 Excessive daytime sleepiness Aortic stenosis Fall from stairs Elbow pain, right Right thigh pain Eosinophilia Normocytic anemia Vertigo UTI (urinary tract infection) Allergic rhinitis Sinusitis Vaginal dryness, menopausal Hyperkalemia Hyponatremia Anemia Osteoarthritis Hay fever Lumbar spine pain (~1983) Foot pain (~2011) Fibromyalgia (~2013) Chronic back pain (~1983) Cervical spine disease (~1983) GERD (gastroesophageal reflux disease) (~2010) Hypothyroidism (~2006) Hypertension (~2012) Surgical History Anesthesia DVT (deep venous thrombosis) (~11/2010) Pulmonary embolism (~2010) History of carpal tunnel repair (~01/2014) History of carpal tunnel repair (~04/2014) History of knee replacement History of knee replacement History of knee replacement Status post arthroscopy Status post arthroscopy Status post discectomy Status post hysterectomy Status post laminectomy Status post delivery (04/08/90) Status post delivery (01/27/87) Family History Father Emphysema/COPD Grandfather Heart disease Grandmother Diabetes mellitus Heart disease Mother Cancer Diabetes mellitus Heart disease Hypertension High cholesterol Grandmother Cancer Social History household members: spouse and children Smoking Status: Never smoker Smoking Status: Never smoker alcohol intake frequency: 0-2 drinks per day Substance Use Type: does not use Exam <Cecilia Lovell PA-C - Last Filed: 08/19/23 18:45> Narrative Exam Narrative: GENERAL: 63 year old patient appears stated age. Well-developed patient, in no acute distress. NEURO: AOx3. HEAD: Atraumatic. Normocephalic. EYES: Pupils equal round and reactive. Extraocular motions intact. No scleral icterus. No injection or drainage. ENT: Nose without bleeding or purulent drainage. Airway patent. CARDIOVASCULAR: Regular rate and rhythm without murmurs, gallops, or rubs. RESPIRATORY: Clear to auscultation. Breath sounds equal bilaterally. No wheezes, rales, or rhonchi. EXTREMITIES: Significant edema of the right lower extremity, most notably around the knee, with ecchymosis that wraps behind the knee and up the posterior thigh. The area is mildly tender, mildly erythematous but not indurated. Postop Dressings are clean dry and intact without evidence of drainage. Her calf is mildly edematous but not taut, area of focal pain over the medial aspect of the upper calf is not warm or firm. DP pulse 2+ and capillary refill 3 seconds. Initial Vital Signs Initial Vital Signs: Vital Signs Temperature 98.5 F 08/19/23 17:48 Pulse Rate 82 08/19/23 17:48 Respiratory Rate 18 08/19/23 17:48 Blood Pressure 152/72 H 08/19/23 17:48 Pulse Oximetry 99 08/19/23 17:48 Oxygen Delivery Method Room Air 08/19/23 17:48 <Rayshawn Lance DO - Last Filed: 08/19/23 21:32> Initial Vital Signs Initial Vital Signs: Vital Signs Temperature 98.5 F 08/19/23 17:48 Pulse Rate 82 08/19/23 17:48 Respiratory Rate 18 08/19/23 17:48 Blood Pressure 152/72 H 08/19/23 17:48 Pulse Oximetry 99 08/19/23 17:48 Oxygen Delivery Method Room Air 08/19/23 17:48 Course <Cecilia Lovell PA-C - Last Filed: 08/19/23 18:45> Orders Ordered: ED Orders 08/19/23 18:06 EKG-12 Lead Stat 08/19/23 18:24 US periph venous low extrem rt Stat 08/19/23 20:22 CBC Auto Diff [Complete Blood Count AUTO DIFF] Stat CMP [Comprehensive Metabolic Panel] Stat Troponin & CK Cardiac Panel Stat Vital Signs Vital signs: Vital Signs - 8 hr 08/19/23 17:48 08/19/23 21:13 Temperature 98.5 F 99.1 F Pulse Rate 82 86 Respiratory Rate 18 18 Blood Pressure 152/72 H 146/66 H Pulse Oximetry 99 97 Oxygen Delivery Method Room Air Room Air <DO Jenny Donohue Last Filed: 08/19/23 21:32> Orders Ordered: ED Orders 08/19/23 18:06 EKG-12 Lead Stat 08/19/23 18:24 US periph venous low extrem rt Stat 08/19/23 20:22 CBC Auto Diff [Complete Blood Count AUTO DIFF] Stat CMP [Comprehensive Metabolic Panel] Stat Troponin & CK Cardiac Panel Stat Vital Signs Vital signs: Vital Signs - 8 hr 08/19/23 17:48 08/19/23 21:13 Temperature 98.5 F 99.1 F Pulse Rate 82 86 Respiratory Rate 18 18 Blood Pressure 152/72 H 146/66 H Pulse Oximetry 99 97 Oxygen Delivery Method Room Air Room Air MDM - Extremity (Nontraumatic) <Cecilia Lovell PA-C - Last Filed: 08/19/23 18:45> Lab Data 08/19/23 20:22 08/19/23 20:22 Labs: Lab Results 08/19/23 Range/Units 20:22 WBC 6.1 (4.5-11.0) X10^3/uL RBC 3.42 L (4.0-5.2) X10^6/uL Hgb 10.7 L (12.0-16.0) g/dL Hct 31.8 L (36-46) % MCV 93.1 (80-100) fL MCH 31.4 (26-34) PG MCHC 33.7 (30-36) % RDW 14.5 (11.6-14.8) % Plt Count 279 (150-400) X10^3/uL Neut % (Auto) 60.6 (50-75) % Lymph % (Auto) 23.4 L (25-40) % Nicholas % (Auto) 11.2 (3-14) % Eos % (Auto) 4.0 (2-4) % Baso % (Auto) 0.8 (0-2) % Neut # (Auto) 3700 (8306-1116) /uL Lymph # (Auto) 1400 (8148-3454) /uL Nicholas # (Auto) 700 (0-900) /uL Eos # (Auto) 200 (0-450) /uL Baso # (Auto) 0 (0-100) /uL Sodium 133 L (137-145) mmol/L Potassium 4.4 (3.4-5.1) mmol/L Chloride 101 (98-107) mmol/L Carbon Dioxide 26 (22-32) mmol/L BUN 40 H (7-17) mg/dL Creatinine 0.92 (0.52-1.04) mg/dL Estimated GFR > 60 (>60) mL/min BUN/Creatinine Ratio 43.5 H (6-22) Glucose 97 (80-110) mg/dL Calcium 9.2 (8.4-10.2) mg/dL Total Bilirubin 0.8 (0.2-1.3) mg/dL AST 20 (14-36) IU/L ALT 15 (<35) IU/L Alkaline Phosphatase 90 (38-126) U/L Total Creatine Kinase 27 L (30-135) U/L Troponin I < 0.012 (0.01-0.034) ng/mL Total Protein 6.7 (6.3-8.2) g/dL Albumin 3.7 (3.5-5.0) g/dL Globulin 3.0 (1.7-4.1) g/dL Albumin/Globulin Ratio 1.2 (1.0-2.8) ECG Data Interpretation: Normal sinus rhythm, rate 85, OH 162, QRS 84, no ST-T changes. MDM Narrative Medical decision making narrative: Multiple etiologies for patient's symptoms considered including, but not limited to: DVT, postoperative pain, edema. In regards to episodes of heart racing, hypotension, concern for SVT, electrolyte abnormality, sepsis. Patient is a 63-year-old female who is 10 days postop a revision of a right knee replacement, with a history of DVT and PE, on prophylactic Eliquis since her surgery. She presents with concern for possible DVT. The pretest probability is low given that she is currently on Eliquis but can not exclude a DVT and her exam is concerning for tenderness and edema. Will obtain ultrasound study. Patient also notes 2 brief episodes of heart racing earlier today, which is accompanied by hypotension per her home blood pressure cuff. These episodes resolved spontaneously and her blood pressure returned to normal after several hours. She is currently feeling well, denies dizziness or lightheadedness. She has had no fever or chills. EKG is reassuring. Will obtain labs including chemistry and troponin to rule-out electrolyte abnormality that could be causing racing heart, and a CBC to evaluate for evidence of infection which could be causing the hypotension. She is normotensive and afebrile in the emergency room. End of shift sign out to Dr. Lance who will continue care. <Rayshawn Lance, DO - Last Filed: 08/19/23 21:32> Lab Data Labs: Lab Results 08/19/23 Range/Units 20:22 WBC 6.1 (4.5-11.0) X10^3/uL RBC 3.42 L (4.0-5.2) X10^6/uL Hgb 10.7 L (12.0-16.0) g/dL Hct 31.8 L (36-46) % MCV 93.1 (80-100) fL MCH 31.4 (26-34) PG MCHC 33.7 (30-36) % RDW 14.5 (11.6-14.8) % Plt Count 279 (150-400) X10^3/uL Neut % (Auto) 60.6 (50-75) % Lymph % (Auto) 23.4 L (25-40) % Nicholas % (Auto) 11.2 (3-14) % Eos % (Auto) 4.0 (2-4) % Baso % (Auto) 0.8 (0-2) % Neut # (Auto) 3700 (7193-2338) /uL Lymph # (Auto) 1400 (3013-3398) /uL Nicholas # (Auto) 700 (0-900) /uL Eos # (Auto) 200 (0-450) /uL Baso # (Auto) 0 (0-100) /uL Sodium 133 L (137-145) mmol/L Potassium 4.4 (3.4-5.1) mmol/L Chloride 101 (98-107) mmol/L Carbon Dioxide 26 (22-32) mmol/L BUN 40 H (7-17) mg/dL Creatinine 0.92 (0.52-1.04) mg/dL Estimated GFR > 60 (>60) mL/min BUN/Creatinine Ratio 43.5 H (6-22) Glucose 97 (80-110) mg/dL Calcium 9.2 (8.4-10.2) mg/dL Total Bilirubin 0.8 (0.2-1.3) mg/dL AST 20 (14-36) IU/L ALT 15 (<35) IU/L Alkaline Phosphatase 90 (38-126) U/L Total Creatine Kinase 27 L (30-135) U/L Troponin I < 0.012 (0.01-0.034) ng/mL Total Protein 6.7 (6.3-8.2) g/dL Albumin 3.7 (3.5-5.0) g/dL Globulin 3.0 (1.7-4.1) g/dL Albumin/Globulin Ratio 1.2 (1.0-2.8) Imaging Data US - DVT: Radiologist's Impression: PROCEDURE: US PERIPH VENOUS LOW EXTREM RT INDICATIONS: post-operative pain and swelling of RLE, hx DVT/PE TECHNIQUE: Real-time imaging, as well as color and pulse Doppler interrogation, were performed of the lower extremity deep veins from the inguinal ligament to the popliteal fossa, with documentation of the visualized calf veins. COMPARISON: None. FINDINGS: The common femoral, femoral, popliteal, and the visualized calf veins are normally compressible, and free of intraluminal thrombus. Color and pulse Doppler demonstrate normal phasic intraluminal flow. There is normal augmentation response to distal compression maneuver. Calf edema. IMPRESSION: No findings of lower extremity deep venous thrombosis. Primary report sent to ordering provider by the technologist. MDM Narrative Medical decision making narrative: Multiple etiologies for patient's symptoms considered including, but not limited to: DVT, postoperative pain, edema. In regards to episodes of heart racing, hypotension, concern for SVT, electrolyte abnormality, sepsis. Patient is a 63-year-old female who is 10 days postop a revision of a right knee replacement, with a history of DVT and PE, on prophylactic Eliquis since her surgery. She presents with concern for possible DVT. The pretest probability is low given that she is currently on Eliquis but can not exclude a DVT and her exam is concerning for tenderness and edema. Will obtain ultrasound study. Patient also notes 2 brief episodes of heart racing earlier today, which is accompanied by hypotension per her home blood pressure cuff. These episodes resolved spontaneously and her blood pressure returned to normal after several hours. She is currently feeling well, denies dizziness or lightheadedness. She has had no fever or chills. EKG is reassuring. Will obtain labs including chemistry and troponin to rule-out electrolyte abnormality that could be causing racing heart, and a CBC to evaluate for evidence of infection which could be causing the hypotension. She is normotensive and afebrile in the emergency room. End of shift sign out to Dr. Lance who will continue care. Dr lance: Received turned over. Review patient's history and physical and workup up to this point. Labs are unremarkable. Ultrasound shows no evidence of a DVT. Her physical exam is not consistent with any cellulitis. She does have bruising around the area. The surgical dressings are clean dry and intact. She is on anticoagulation. She was supposed to be on this medicine for 45 days after the surgery. No fevers. She has a follow-up already scheduled. No indication to change any of her medications today. Discharge home with return precautions. She expressed understanding and agreement. Discharge Plan Departure Patient Disposition: Home Clinical Impression: Knee swelling Activity Restrictions/Additional Instructions: Continue to take all of your medications as directed. Follow all of the postoperative instructions given to you by the orthopedic surgeon. Keep all of your scheduled medical appointments. Return to the emergency department for new symptoms. Prescriptions: No Action cholecalciferol (vitamin D3) 5,000 UNIT capsule 5,000 unit PO DIRECTED Qty: 0 calcium carbonate [Calcium 600] 600 mg calcium (1,500 mg) tablet 600 mg PO BID Patient Comments: TAKE 1500MG ONCE DAILY pramipexole 0.125 mg tablet See Rx Instructions .ROUTE .COMPLEX Qty: 360 3RF Dose Instruction: TAKE 1 TABLET BY MOUTH THREE TIMES DAILY AND ONE EVERY NIGHT AT BEDTIME NEEDED Rx Instructions: TAKE 1 TABLET BY MOUTH THREE TIMES DAILY AND ONE EVERY NIGHT AT BEDTIME NEEDED citalopram 40 mg tablet See Rx Instructions .ROUTE .COMPLEX Qty: 90 3RF Dose Instruction: TAKE 1 TABLET BY MOUTH DAILY. Rx Instructions: TAKE 1 TABLET BY MOUTH DAILY. spironolactone 25 mg tablet See Rx Instructions .ROUTE .COMPLEX Qty: 180 3RF Dose Instruction: TAKE 1 TABLET BY MOUTH TWICE DAILY Rx Instructions: TAKE 1 TABLET BY MOUTH TWICE DAILY trazodone 50 mg tablet 100 mg PO ONCE PM Qty: 180 3RF losartan 50 mg tablet 50 mg PO DAILY Qty: 90 3RF estradiol 0.01 % (0.1 mg/gram) cream See Rx Instructions .ROUTE .COMPLEX Qty: 42.5 5RF Dose Instruction: INSERT ONE APPLICATORFUL VAGINALLY AT BEDTIME FOR 14 DAYS, THEN TWICE TO THREE TIMES WEEKLY NEEDED Rx Instructions: INSERT ONE APPLICATORFUL VAGINALLY AT BEDTIME FOR 14 DAYS, THEN TWICE TO THREE TIMES WEEKLY NEEDED baclofen 10 mg tablet 10 mg PO 3XD PRN (Reason: for allergies) Qty: 280 0RF thyroid (pork) [N[place]th Thyroid] 60 mg tablet See Rx Instructions .ROUTE .COMPLEX Qty: 90 3RF Dose Instruction: TAKE 1 TABLET(60 MG) BY MOUTH EVERY DAY Rx Instructions: TAKE 1 TABLET(60 MG) BY MOUTH EVERY DAY (DME) Disabled Parking Permit See Rx Instructions .Route .MEDSUPPLY Qty: 1 0RF Rx Instructions: As directed (DME) Massage therapy See Rx Instructions .Route .MEDSUPPLY Qty: 1 0RF Rx Instructions: Use per insurance. oxycodone 5 mg tablet 1 - 2 tab PO Q3HP PRN (Reason: pain) acetaminophen [Tylenol Extra Strength] 500 mg Tablet 1,000 mg PO Q6H PRN (Reason: Pain (Scale Score 1-3)) Referrals: Ryley Ureña DO [Primary Care Provider] - Stand Alone Forms: Patient Portal/API
[2023-08-19 20:28] LABS: Add Manual Diff / Slide Review NO; Basophils Absolute Auto 0 /uL (0-100); Basophils Percent Auto 0.8 % (0-2); Eosinophils Absolute Auto 200 /uL (0-450); Hematocrit 31.8 % (36-46); Hemoglobin 10.7 g/dL (12.0-16.0); Lymphocytes Absolute Auto 1400 /uL (1100-4500); Lymphocytes Percent Auto 23.4 % (25-40); Mean Corpuscular HGB Conc 33.7 % (30-36); Mean Corpuscular Hemoglobin 31.4 PG (26-34); Mean Corpuscular Volume 93.1 fL (80-100); Monocytes Absolute Auto 700 /uL (0-900); Monocytes Percent Auto 11.2 % (3-14); Neutrophils Absolute Auto 3700 /uL (1500-7000); Neutrophils Percent Auto 60.6 % (50-75); Platelet Count 279 X10^3/uL (150-400); Red Blood Cell Count 3.42 X10^6/uL (4.0-5.2); Red Cell Distribution Width 14.5 % (11.6-14.8); White Blood Cell Count 6.1 X10^3/uL (4.5-11.0)
[2023-08-19 20:44] LABS: Alanine Aminotransferase 15 IU/L (<35); Albumin 3.7 g/dL (3.5-5.0); Albumin Globulin Ratio 1.2 (1.0-2.8); Alkaline Phosphatase 90 U/L (38-126); Aspartate Aminotransferase 20 IU/L (14-36); BUN Creatinine Ratio 43.5 (6-22); Bilirubin Total 0.8 mg/dL (0.2-1.3); Blood Urea Nitrogen 40 mg/dL (7-17); Calcium 9.2 mg/dL (8.4-10.2); Carbon Dioxide 26 mmol/L (22-32); Chloride 101 mmol/L (98-107); Creatine Kinase 27 U/L (30-135); Estimated Glomerular Filt Rate > 60 mL/min (>60); Glucose 97 mg/dL (80-110); HEMOLYSIS < 15 (0-50); Potassium 4.4 mmol/L (3.4-5.1); Sodium 133 mmol/L (137-145); Total Protein 6.7 g/dL (6.3-8.2)
[2023-08-19 20:56] LABS: Troponin I < 0.012 ng/mL (0.01-0.034)
[2023-08-19 21:13] VITALS: BP 146/66; PULSE 86; RESP 18; TEMP 37.3; O2SAT 97
== END 2023-08-19 21:14 | disposition home or self-care (01) ==
PROVIDERS: Emergency Provider Physician Assistant; PCP Family Medicine
DX: G89.18 Other acute postprocedural pain (principal); R00.2 Palpitations; Z79.01 Long term (current) use of anticoagulants; Z96.651 Presence of right artificial knee joint
CPT/HCPCS: 36415; 80053; 82550; 84484; 85025; 93005; 93010; 93971; 99283; 99284

== ENCOUNTER → 2023-08-25 10:40 | Outpatient (CLI) | payer OTHER, SELFPAY ==
[2023-08-25 14:50] LABS: Appearance Urine UA CLEAR; Bilirubin Urine UA NEGATIVE (NEGATIVE); Color Urine UA YELLOW; Glucose Urine UA NEGATIVE (Negative); Ketones Urine UA NEGATIVE (NEGATIVE); Leukocyte Esterase Urine UA 1+ (NEGATIVE); Nitrite Urine UA NEGATIVE (Negative); Occult Blood Urine UA TRACE-INTACT (Negative); Protein Urine UA NEGATIVE (Negative); Specific Gravity Urine UA <=1.005 (1.000-1.035); Urobilinogen Urine UA 0.2 E.U./dL (0.2)
[2023-08-25 14:56] LABS: pH Urine UA 6.5 (4.5-8.0)
[2023-08-25 14:57] LABS: Bacteria Urine Moderate (10-30); Culture Indicated Urine Specimen Cultured; RBC Urine 1-5/HPF (0-5/HPF); Squamous Epithelial Cell Urine 1-5 /HPF (0-5/HPF); Urine Volume 10mL (spun); WBC Urine 5-10/HPF (0-5/HPF)
== END ==
PROVIDERS: PCP Family Medicine; Referring Provider Physician Assistant; Visit Provider Physician Assistant
DX: R39.9 Unspecified symptoms and signs involving the genitourinary system (principal)
CPT/HCPCS: 81001; 87077; 87086; 87186

== ENCOUNTER → 2023-09-07 08:32 | Outpatient (CLI) | payer OTHER, SELFPAY ==
[2023-09-07 08:53] LABS: Add Manual Diff / Slide Review NO; Basophils Absolute Auto 0 /uL (0-100); Basophils Percent Auto 0.6 % (0-2); Eosinophils Absolute Auto 200 /uL (0-450); Hematocrit 37.2 % (36-46); Hemoglobin 12.3 g/dL (12.0-16.0); Lymphocytes Absolute Auto 1900 /uL (1100-4500); Lymphocytes Percent Auto 35.3 % (25-40); Mean Corpuscular HGB Conc 33.2 % (30-36); Mean Corpuscular Hemoglobin 30.9 PG (26-34); Mean Corpuscular Volume 93.3 fL (80-100); Monocytes Absolute Auto 500 /uL (0-900); Monocytes Percent Auto 9.9 % (3-14); Neutrophils Absolute Auto 2700 /uL (1500-7000); Neutrophils Percent Auto 51.2 % (50-75); Platelet Count 271 X10^3/uL (150-400); Red Blood Cell Count 3.98 X10^6/uL (4.0-5.2); Red Cell Distribution Width 14.3 % (11.6-14.8); White Blood Cell Count 5.3 X10^3/uL (4.5-11.0)
[2023-09-07 09:26] LABS: Alanine Aminotransferase 13 IU/L (<35); Albumin Globulin Ratio 1.3 (1.0-2.8); Alkaline Phosphatase 136 U/L (38-126); Aspartate Aminotransferase 20 IU/L (14-36); BUN Creatinine Ratio 29.3 (6-22); Bilirubin Total 0.9 mg/dL (0.2-1.3); Blood Urea Nitrogen 27 mg/dL (7-17); Calcium 9.9 mg/dL (8.4-10.2); Carbon Dioxide 28 mmol/L (22-32); Chloride 102 mmol/L (98-107); Cholesterol 147 mg/dL (140-199); Estimated Glomerular Filt Rate > 60 mL/min (>60); Globulin 3.1 g/dL (1.7-4.1); Glucose 89 mg/dL (80-110); HDL Cholesterol 83 mg/dL (40-60); HEMOLYSIS < 15 (0-50); LDL Cholesterol Calculated 54 mg/dL (<100); Potassium 3.9 mmol/L (3.4-5.1); Sodium 136 mmol/L (137-145); Total Protein 7.1 g/dL (6.3-8.2); Triglycerides 52 mg/dL (35-150)
[2023-09-07 09:41] LABS: TSH w/ Reflex to FT4 1.28 uIU/mL (0.47-4.68)
== END ==
PROVIDERS: PCP Family Medicine; Referring Provider Family Medicine; Visit Provider Family Medicine
DX: N18.2 Chronic kidney disease, stage 2 (mild) (principal); E03.9 Hypothyroidism, unspecified; D64.9 Anemia, unspecified; I10 Essential (primary) hypertension; E87.1 Hypo-osmolality and hyponatremia; E87.5 Hyperkalemia
CPT/HCPCS: 36415; 80053; 80061; 84443; 85025

== ENCOUNTER → 2023-09-16 10:38 | Outpatient (CLI) | payer OTHER, SELFPAY ==
[2023-09-16 11:49] LABS: Creatinine Urine Random 18.4 mg/dL
[2023-09-16 12:12] LABS: Microalbumin Urine Random < 0.6 mg/dL (0-1.6)
== END ==
PROVIDERS: PCP Family Medicine; Referring Provider Family Medicine; Visit Provider Family Medicine
DX: N18.2 Chronic kidney disease, stage 2 (mild) (principal)
CPT/HCPCS: 82043; 82570

== ENCOUNTER → 2023-12-20 08:47 | Outpatient (CLI) | payer OTHER, SELFPAY ==
[2023-12-20 10:57] LABS: Alanine Aminotransferase 18 IU/L (<35); Albumin 4.4 g/dL (3.5-5.0); Albumin Globulin Ratio 1.6 (1.0-2.8); Alkaline Phosphatase 152 U/L (38-126); Aspartate Aminotransferase 25 IU/L (14-36); BUN Creatinine Ratio 25.3 (6-22); Bilirubin Total 0.6 mg/dL (0.2-1.3); Blood Urea Nitrogen 24 mg/dL (7-17); Calcium 9.6 mg/dL (8.4-10.2); Carbon Dioxide 29 mmol/L (22-32); Chloride 105 mmol/L (98-107); Estimated Glomerular Filt Rate > 60 mL/min (>60); Globulin 2.8 g/dL (1.7-4.1); Glucose 87 mg/dL (80-110); HEMOLYSIS < 15 (0-50); Sodium 139 mmol/L (137-145); Total Protein 7.2 g/dL (6.3-8.2)
[2023-12-20 10:58] LABS: Potassium 5.6 mmol/L (3.4-5.1)
[2023-12-20 14:06] LABS: Hemoglobin A1C% w Est Avg Glu 5.2 % (4.0-6.0)
== END ==
LOC: LAB 08:47
PROVIDERS: PCP Family Medicine; Referring Provider Family Medicine; Visit Provider Family Medicine
DX: N18.2 Chronic kidney disease, stage 2 (mild) (principal)
CPT/HCPCS: 36415; 80053; 83036

== ENCOUNTER 2024-01-30 11:32 | Emergency (ER) | payer OTHER, SELFPAY ==
[2024-01-30 11:58] VITALS: BP 136/69; PULSE 71; RESP 18; TEMP 36.9; O2SAT 98; BMI 35.4
--- NOTE | 2024-01-30 12:13 | DI.US.S_ITS ---
PROCEDURE: US PERIP VENOUS LOW EXTREM LT INDICATIONS: Left top foot bumb post 7 hour car ride TECHNIQUE: Real-time imaging, as well as color and pulse Doppler interrogation, were performed of the lower extremity deep veins from the inguinal ligament to the popliteal fossa, with documentation of the visualized calf veins. COMPARISON: [facility], [facility] VENOUS LOW EXTREM LT, 04/13/2018, 16:37. FINDINGS: The common femoral, femoral, popliteal, and the visualized calf veins are normally compressible, and free of intraluminal thrombus. Color and pulse Doppler demonstrate normal phasic intraluminal flow. There is normal augmentation response to distal compression maneuver. IMPRESSION: No evidence of DVT in visualized left lower extremity veins. Dictated by: Ney Torres M.D. on 01/30/2024 at 13:07 Approved by: Ney Torres M.D. on 01/30/2024 at 13:07
[2024-01-30 13:13] VITALS: PULSE 85; O2SAT 96
[2024-01-30 13:14] VITALS: BP 171/83; PULSE 82; O2SAT 97
--- NOTE | 2024-01-30 13:22 | ED_ITS ---
HPI - Extremity Problem General Chief complaint: Extremity Problem,Nontraumatic Stated complaint: LEFT LEG POSSIBLE CLOT Time Seen by Provider: 01/30/24 13:16 Source: patient Mode of arrival: Ambulatory History of Present Illness HPI Narrative: 63-year-old female presents from the walk-in clinic for left foot pain and swelling. Patient states that she has been on her feet walking around a lot for a vacation and over the last several days has noticed worsening pain and swelling. She reports previous history of orthopedic surgery with hardware placement. She states that she knows that the hardware is ?broken?, in his waiting until she goes back home to [place] to see her foot doctor. She went to the walk-in clinic to get her foot evaluated, but they referred her to the emergency department for concern of a possible blood clot. Related Data Home Medications Medication Instructions Recorded Confirmed cholecalciferol (vitamin D3) 125 5,000 unit PO DIRECTED ##0 10/15/17 01/30/24 mcg (5,000 unit) capsule oxycodone 5 mg tablet 1 - 2 tab PO Q3HP PRN pain 04/13/18 01/30/24 calcium carbonate (Calcium 600) 600 mg PO BID 05/23/18 01/30/24 acetaminophen 500 mg tablet 1,000 mg PO Q6H PRN Pain (Scale 03/30/19 01/30/24 (Tylenol Extra Strength) Score 1-3) Progesterone PO 12/24/23 01/30/24 progesterone PO 12/24/23 01/30/24 Previous Rx's Medication Instructions Recorded Disabled Parking Permit #1 ea 05/23/21 Massage therapy #1 ea 07/17/21 trazodone 50 mg tablet 100 mg (2 x 50 mg) PO ONCE PM #180 01/29/23 tabs estradiol 0.01% (0.1 mg/gram) See Rx Instructions .Route 06/25/23 vaginal cream .COMPLEX #42.5 grams losartan 50 mg tablet 50 mg PO DAILY #90 tabs 06/25/23 thyroid (pork) 60 mg tablet See Rx Instructions .Route 07/26/23 ([place] Thyroid) .COMPLEX #90 tabs pramipexole 0.125 mg tablet See Rx Instructions .Route 11/15/23 .COMPLEX #360 tabs citalopram 20 mg tablet 20 mg PO DAILY #30 tabs 11/18/23 spironolactone 25 mg tablet See Rx Instructions .Route 01/03/24 .COMPLEX #180 tabs baclofen 10 mg tablet 10 mg PO 3XD PRN for allergies 01/17/24 #280 tabs Allergies Allergy/AdvReac Type Severity Reaction Status Date / Time amoxicillin [AMOXICILLIN] Allergy Severe HIVES Verified 01/30/24 10:53 Sulfa (Sulfonamide Allergy Severe MOUTH Verified 01/30/24 10:53 Antibiotics) LESIONS [SULFA (SULFONAMIDE ANTIBIOTICS)] iodine [IODINE] AdvReac Severe VAGINAL Verified 01/30/24 10:53 BURNING W/DOUCHE, TOPICAL IS O.K. meperidine [From Demerol] AdvReac Mild Vomiting Verified 01/30/24 10:53 Patient History Medical History Actinic keratosis due to exposure to sunlight Medicare annual wellness visit, subsequent CKD (chronic kidney disease) stage 2, GFR 60-89 ml/min Chronic right-sided low back pain with bilateral sciatica Excessive daytime sleepiness Aortic stenosis Fall from stairs Elbow pain, right Right thigh pain Eosinophilia Normocytic anemia Vertigo UTI (urinary tract infection) Allergic rhinitis Sinusitis Vaginal dryness, menopausal Hyperkalemia Hyponatremia Anemia Osteoarthritis Hay fever Lumbar spine pain (~1983) Foot pain (~2011) Fibromyalgia (~2013) Chronic back pain (~1983) Cervical spine disease (~1983) GERD (gastroesophageal reflux disease) (~2010) Hypothyroidism (~2006) Hypertension (~2012) Surgical History Anesthesia DVT (deep venous thrombosis) (~11/2010) Pulmonary embolism (~2010) History of carpal tunnel repair (~01/2014) History of carpal tunnel repair (~04/2014) History of knee replacement History of knee replacement History of knee replacement Status post arthroscopy Status post arthroscopy Status post discectomy Status post hysterectomy Status post laminectomy Status post delivery (04/08/90) Status post delivery (01/27/87) Family History Father Emphysema/COPD Grandfather Heart disease Grandmother Diabetes mellitus Heart disease Mother Cancer Diabetes mellitus Heart disease Hypertension High cholesterol Grandmother Cancer Social History household members: spouse and children Smoking Status: Never smoker Smoking Status: Never smoker alcohol intake frequency: 0-2 drinks per day Substance Use Type: does not use Exam Initial Vital Signs Initial Vital Signs: Vital Signs Temperature 98.4 F 01/30/24 11:58 Pulse Rate 71 01/30/24 11:58 Respiratory Rate 18 01/30/24 11:58 Blood Pressure 136/69 01/30/24 11:58 Pulse Oximetry 98 01/30/24 11:58 Oxygen Delivery Method Room Air 01/30/24 11:58 Const: Awake, alert, no acute distress, nontoxic appearing MSK: Atraumatic, full range of motion, generalized tenderness to palpation over the dorsum of the left foot, no obvious swelling, palpable pulses bilaterally Skin: Warm, Dry, intact, no rashes Neuro: AO x3, CN II-XII grossly intact, moves all extremities Course Orders Ordered: ED Orders 01/30/24 12:13 [address] [facility] venous low extrem lt Stat 01/30/24 13:21 XR foot LT min 3V Stat Vital Signs Vital signs: Vital Signs - 8 hr 01/30/24 11:58 01/30/24 13:13 01/30/24 13:14 Temperature 98.4 F Pulse Rate 71 85 82 Respiratory Rate 18 Blood Pressure 136/69 Pulse Oximetry 98 96 97 Oxygen Delivery Method Room Air 01/30/24 13:14 Temperature Pulse Rate Respiratory Rate Blood Pressure 171/83 H Pulse Oximetry Oxygen Delivery Method MDM - Extremity (Nontraumatic) Imaging Data US - DVT: Radiologist's Impression: PROCEDURE: US PERIP VENOUS LOW EXTREM LT INDICATIONS: Left top foot bumb post 7 hour car ride TECHNIQUE: Real-time imaging, as well as color and pulse Doppler interrogation, were performed of the lower extremity deep veins from the inguinal ligament to the popliteal fossa, with documentation of the visualized calf veins. COMPARISON: [facility], US PERIP VENOUS LOW EXTREM LT, 04/13/2018, 16:37. FINDINGS: The common femoral, femoral, popliteal, and the visualized calf veins are normally compressible, and free of intraluminal thrombus. Color and pulse Doppler demonstrate normal phasic intraluminal flow. There is normal augmentation response to distal compression maneuver. IMPRESSION: No evidence of DVT in visualized left lower extremity veins. Dictated by: Ney Torres M.D. on 01/30/2024 at 13:07 Approved by: Ney Torres M.D. on 01/30/2024 at 13:07 Extremity x-ray #1: Radiologist's Impression: PROCEDURE: XR FOOT LT MIN 3V INDICATIONS: FOOT PAIN/SWELLING, NO TRAUMA, PREV HARDWARE TECHNIQUE: 3 views of the foot were acquired. COMPARISON: [facility], CR, XR FOOT LT MIN 3V, 11/29/2017, 9:49. FINDINGS: Bones: Extensive fusion of midfoot joints are seen with surgical hardware in place and near complete bony fusion at TMT joints and intertarsal joints. There is pes planus. No definite hardware loosening or failure is seen. Osteopenia is seen. Osteoarthritic changes are noted in forefoot and hindfoot joints. No acute fracture or dislocation. Soft tissues: No tibiotalar joint effusion. Achilles tendon appears normal. IMPRESSION: Extensive fusion of midfoot joints. Osteoarthritic changes throughout left foot. No acute fracture or dislocation. No definite hardware loosening or failure. No radiographic evidence of osteomyelitis. Dictated by: Ney Torres M.D. on 01/30/2024 at 13:48 Approved by: Ney Torres M.D. on 01/30/2024 at 13:50 MDM Narrative Medical decision making narrative: Atraumatic foot pain and swelling. X-rays and ultrasound negative. Unknown etiology of swelling. Patient counseled that she may apply an Larry wrap if wanted for swelling. 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 Discharge Plan Departure Patient Disposition: Home Clinical Impression: Foot pain, left Instructions: DI for Foot Pain Activity Restrictions/Additional Instructions: Your x-ray and ultrasound today were normal. I do not know the cause of your foot pain or swelling but it was not appear to be a blood clot, fracture, or acute infection at this time. Wear an Larry wrap bandage when at home for pain relief and to help decrease swelling. When you get back home from your vacation follow up with your foot doctor if you continue to experience pain. Prescriptions: No Action cholecalciferol (vitamin D3) 5,000 UNIT capsule 5,000 unit PO DIRECTED Qty: 0 calcium carbonate [Calcium 600] 600 mg calcium (1,500 mg) tablet 600 mg PO BID Patient Comments: TAKE 1500MG ONCE DAILY trazodone 50 mg tablet 100 mg PO ONCE PM Qty: 180 3RF losartan 50 mg tablet 50 mg PO DAILY Qty: 90 3RF estradiol 0.01 % (0.1 mg/gram) cream See Rx Instructions .ROUTE .COMPLEX Qty: 42.5 5RF Dose Instruction: INSERT ONE APPLICATORFUL VAGINALLY AT BEDTIME FOR 14 DAYS, THEN TWICE TO THREE TIMES WEEKLY NEEDED Rx Instructions: INSERT ONE APPLICATORFUL VAGINALLY AT BEDTIME FOR 14 DAYS, THEN TWICE TO THREE TIMES WEEKLY NEEDED thyroid (pork) [[place] Thyroid] 60 mg tablet See Rx Instructions .ROUTE .COMPLEX Qty: 90 3RF Dose Instruction: TAKE 1 TABLET(60 MG) BY MOUTH EVERY DAY Rx Instructions: TAKE 1 TABLET(60 MG) BY MOUTH EVERY DAY pramipexole 0.125 mg tablet See Rx Instructions .ROUTE .COMPLEX Qty: 360 0RF Dose Instruction: TAKE 1 TABLET BY MOUTH THREE TIMES DAILY AND ONE EVERY NIGHT AT BEDTIME NEEDED Rx Instructions: TAKE 1 TABLET BY MOUTH THREE TIMES DAILY AND ONE EVERY NIGHT AT BEDTIME NEEDED citalopram 20 mg tablet 20 mg PO DAILY Qty: 30 0RF spironolactone 25 mg tablet See Rx Instructions .ROUTE .COMPLEX Qty: 180 1RF Dose Instruction: TAKE 1 TABLET BY MOUTH TWICE DAILY Rx Instructions: TAKE 1 TABLET BY MOUTH TWICE DAILY baclofen 10 mg tablet 10 mg PO 3XD PRN (Reason: for allergies) Qty: 280 0RF (DME) Disabled Parking Permit See Rx Instructions .Route .MEDSUPPLY Qty: 1 0RF Rx Instructions: As directed ([facility]) Massage therapy See Rx Instructions .Route .MEDSUPPLY Qty: 1 0RF Rx Instructions: Use per insurance. progesterone 25 mg capsule PO Progesterone 50 mg capsule PO oxycodone 5 mg tablet 1 - 2 tab PO Q3HP PRN (Reason: pain) acetaminophen [Tylenol Extra Strength] 500 mg Tablet 1,000 mg PO Q6H PRN (Reason: Pain (Scale Score 1-3)) Referrals: Ryley Ureña DO [Primary Care Provider] - Stand Alone Forms: Patient Portal/API
== END 2024-01-30 14:22 | disposition home or self-care (01) ==
PROVIDERS: Emergency Provider Emergency Medicine; PCP Family Medicine
DX: M79.672 Pain in left foot (principal)
CPT/HCPCS: 73630; 93971; 99281; 99283

== ENCOUNTER → 2024-03-16 09:59 | Outpatient (CLI) | payer OTHER, SELFPAY ==
--- NOTE | 2024-03-16 10:01 | DI.RAD.S_ITS ---
PROCEDURE: XR HIP W PEL IF DONE RT 2V INDICATIONS: RIGHT HIP PAIN TECHNIQUE: AP view of the pelvis, frogleg view of the right hip COMPARISON: None. FINDINGS: Diffuse osseous demineralization. No fracture or dislocation. Moderate right and mild left hip osteoarthritis. Mild bilateral sacroiliac joint and pubic symphysis osteoarthritis. Moderate lower lumbar osteoarthritis with dextrocurvature of the lower lumbar spine. Pelvic phleboliths. IMPRESSION: Moderate right hip osteoarthritis. No fracture or dislocation. Dictated by: Wesley Larsen M.D. on 03/16/2024 at 13:19 Approved by: Wesley Larsen M.D. on 03/16/2024 at 13:20
== END ==
PROVIDERS: PCP Family Medicine; Referring Provider Acupuncturist; Visit Provider Acupuncturist
DX: M47.816 Spondylosis without myelopathy or radiculopathy, lumbar region (principal); M16.0 Bilateral primary osteoarthritis of hip; M19.09 Primary osteoarthritis, other specified site; I87.8 Other specified disorders of veins; M25.551 Pain in right hip
CPT/HCPCS: 73502

== ENCOUNTER 2024-03-21 07:55 | Day surgery (SDC) | payer OTHER, SELFPAY ==
[2024-03-21 08:29] VITALS: BP 133/75; PULSE 68; RESP 16; TEMP 36.4; O2SAT 99
[2024-03-21] MEDS: LACTATED RINGERS 1,000 ML 42 ML IV (08:33)
--- NOTE | 2024-03-21 08:55 | PM.HP.1 ---
History of Present Illness History of Present Illness Date Patient Seen: 03/21/24 Time Patient Seen: 08:55 Chief complaint: Colonoscopy Narrative: 63-year-old woman here for screening colonoscopy. Personal history of colonic polyps. Last colonoscopy 5 years ago. No family history of intestinal malignancy. No abdominal concerns today. [facility] Medical History Actinic keratosis due to exposure to sunlight Medicare annual wellness visit, subsequent CKD (chronic kidney disease) stage 2, GFR 60-89 ml/min Chronic right-sided low back pain with bilateral sciatica Excessive daytime sleepiness Aortic stenosis Fall from stairs Elbow pain, right Right thigh pain Eosinophilia Normocytic anemia Vertigo UTI (urinary tract infection) Allergic rhinitis Sinusitis Vaginal dryness, menopausal Hyperkalemia Hyponatremia Anemia Osteoarthritis Hay fever Lumbar spine pain (~1983) Foot pain (~2011) Fibromyalgia (~2013) Chronic back pain (~1983) Cervical spine disease (~1983) GERD (gastroesophageal reflux disease) (~2010) Hypothyroidism (~2006) Hypertension (~2012) Surgical History Anesthesia DVT (deep venous thrombosis) (~11/2010) Pulmonary embolism (~2010) History of carpal tunnel repair (~01/2014) History of carpal tunnel repair (~04/2014) History of knee replacement History of knee replacement History of knee replacement Status post arthroscopy Status post arthroscopy Status post discectomy Status post hysterectomy Status post laminectomy Status post delivery (04/08/90) Status post delivery (01/27/87) Family History Father Emphysema/COPD Grandfather Heart disease Grandmother Diabetes mellitus Heart disease Mother Cancer Diabetes mellitus Heart disease Hypertension High cholesterol Grandmother Cancer Social History household members: spouse and children Smoking Status: Never smoker alcohol intake: never Meds Home Medications and Allergies Home Medications Medication Instructions Recorded Confirmed Type cholecalciferol (vitamin D3) 125 5,000 unit PO DIRECTED ##0 10/15/17 01/30/24 History mcg (5,000 unit) capsule oxycodone 5 mg tablet 1 - 2 tab PO Q3HP PRN pain 04/13/18 03/21/24 History calcium carbonate (Calcium 600) 600 mg PO BID 05/23/18 01/30/24 History acetaminophen 500 mg tablet 1,000 mg PO Q6H PRN Pain (Scale 03/30/19 03/21/24 History (Tylenol Extra Strength) Score 1-3) Disabled Parking Permit #1 ea 05/23/21 01/30/24 Rx Massage therapy #1 ea 07/17/21 01/30/24 Rx estradiol 0.01% (0.1 mg/gram) See Rx Instructions .Route 06/25/23 01/30/24 Rx vaginal cream .COMPLEX #42.5 grams losartan 50 mg tablet 50 mg PO DAILY #90 tabs 06/25/23 03/21/24 Rx citalopram 20 mg tablet 20 mg PO DAILY #30 tabs 11/18/23 03/21/24 Rx Progesterone 50 mg PO DAILY 12/24/23 03/21/24 History progesterone PO 12/24/23 01/30/24 History baclofen 10 mg tablet 10 mg PO 3XD PRN for allergies 01/17/24 03/21/24 Rx #280 tabs trazodone 50 mg tablet 100 mg (2 x 50 mg) PO ONCE PM #180 02/14/24 03/21/24 Rx tabs peg 3350-sod sulf,jlkpo-pgs-has 1,000 ml PO DIRECTED #2,000 mL 02/15/24 Rx 178.7-7.3-0.5-1.12-0.9 gram oral soln (Suflave) pramipexole 0.125 mg tablet 0.125 mg PO BEDTIME 03/21/24 History spironolactone 25 mg tablet 25 mg PO BID 03/21/24 03/21/24 History thyroid (pork) 60 mg tablet 60 mg PO DAILY 03/21/24 03/21/24 History ([place] Thyroid) Allergies Allergy/AdvReac Type Severity Reaction Status Date / Time amoxicillin [AMOXICILLIN] Allergy Severe HIVES Verified 03/21/24 08:11 Sulfa (Sulfonamide Allergy Severe MOUTH Verified 03/21/24 08:11 Antibiotics) LESIONS [SULFA (SULFONAMIDE ANTIBIOTICS)] iodine [IODINE] AdvReac Severe VAGINAL Verified 03/21/24 08:11 BURNING W/DOUCHE, TOPICAL IS O.K. meperidine [From Demerol] AdvReac Mild Vomiting Verified 03/21/24 08:11 Exam Vital Signs (past 8 hours): - 03/21/24 08:29 Temperature 97.5 F L Pulse Rate 68 Respiratory Rate 16 Blood Pressure 133/75 Pulse Oximetry 99 Oxygen Delivery Method Room Air Oxygen Delivery Method Room Air Narrative Exam Narrative: General adult woman alert oriented no acute distress Chest nonlabored respiration Extremities warm well perfused Assessment & Plan Assessment & Plan narrative: The patient requires colorectal screening and colonoscopy is recommended. Technical details were discussed. Risks, benefits, alternatives explained. Risks including but not limited to myocardial infarction, aspiration, bleeding, pain, missed lesion, incomplete examination, need for further radiographic studies, intestinal injury, and need for major abdominal surgery were discussed. All questions were answered to their satisfaction, and they are in agreement with this plan. Time-Based Coding :: [TOTAL MINUTES] spent with patient and on the chart (including review of chart, obtaining history, exam, reviewing outside data, placing orders, documenting exam and treatment plan, and counseling patient) on [DATE].
[2024-03-21 09:29] VITALS: BP 106/69; PULSE 79; RESP 12; TEMP 36.9; O2SAT 97
[2024-03-21 09:35] VITALS: BP 115/68; PULSE 73; RESP 18; O2SAT 97
--- NOTE | 2024-03-21 09:36 | P.OP.COLON_ITS ---
Operative Date/Time/Diagnoses Date of procedure: 03/21/24 Time of procedure: 09:37 Pre-op diagnosis: Colorectal screening Procedure & Clinicians Study performed: Screening colonoscopy Same procedure as scheduled: Yes Indications: Colorectal screening Surgeon: Shamir Call Procedure Notes Procedure in detail: The history and physical was performed/updated and the patient is ASA class is 2. The procedure was discussed in detail with the patient. Potential risks co mplications including infection, bleeding, missed diagnosis, perforation, need for surgery, and were explained. Their questions were answered and informed consent was obtained. Patient was brought to the procedure room and placed standard monitoring equipment. The patient's vital signs were monitored continuously throughout the entire procedure. Prior to starting time-out was performed. The patient was placed in the left lateral recumbent position. Procedural sedation was administered by anesthesia. Examination began with a thorough inspection of the perianal area there was no evidence of fissures, fistulae, external hemorrhoids or cutaneous malignancy. The colonoscopy scope was then placed into the anal canal and was advanced to the cecum, which was identified by the ileocecal valve, the appendiceal orifice and the confluence of the taenia. The scope was then slowly withdrawn examining colon thoroughly in all directions, irrigating it of any residual stool. The scope was retroflexed within the rectum The patient tolerated the procedure well. They will be discharged once criteria are met. The prep was of good/excellent quality. The withdrawl time was 7 minutes. FINDINGS * Unremarkable colonoscopy. Normal healthy colonic mucosa without mass or polyps. Specimen(s): none sent Impression: Normal colonoscopy Post-procedure Recommendations: Colonoscopy in 10 years Disposition: same day surgery
[2024-03-21 09:39] VITALS: BP 115/84; PULSE 70; RESP 16; TEMP 36.9; O2SAT 99
[2024-03-21 09:45] VITALS: BP 129/78; PULSE 68; RESP 16; O2SAT 99
[2024-03-21 09:59] VITALS: BP 133/78; PULSE 62; RESP 16; O2SAT 100
--- NOTE | 2024-03-21 10:01 | SUR.PHASEI ---
0955 witnessed fall from seated position pt states just slipped off of chair denies dizziness/injury or other complaints ambulatory after event MD notified
--- NOTE | 2024-03-21 10:09 | SUR.PHASEII ---
1008 at time of discharge pt is ambulatory ind, denies further dizziness or other symptoms. Contusion to lt cheek ice pack provided, pt states she struck the garbage can in her slip/fall. Denies headache/neck pain/nausea. Pt declined further evaluation in the emergency room. Pt requested the hospital not contact her regarding the fall, states she wishes to tell him herself.
== END 2024-03-21 10:09 | disposition home or self-care (01) ==
PROVIDERS: PCP Family Medicine; Referring Provider Surgery; Visit Provider Surgery
PROC: 0DJD8ZZ Inspection of Lower Intestinal Tract, Via Natural or Artificial Opening Endoscopic (ICD-10-PCS; CPT 45378; principal; 2024-03-21 08:45)
DX: Z12.11 Encounter for screening for malignant neoplasm of colon (principal); Z86.010 Personal history of colon polyps
CPT/HCPCS: G0105; J2704

== ENCOUNTER → 2024-04-10 10:36 | Outpatient (CLI) | payer OTHER, SELFPAY ==
--- NOTE | 2024-04-10 | DI.MRI.S_ITS ---
PROCEDURE: MR PELVIS WO CON INDICATIONS: SACROILIITIS/LUMBAR FORAMIAL STENOSIS/RADICULOPAHY TECHNIQUE: Noncontrast axial and oblique coronal T1 spin echo and STIR through the sacroiliac joints. COMPARISON: None. FINDINGS: Image quality: Excellent. Bones: Mild subchondral marrow edema of the right sacral alar, about the right superior sacroiliac joint, degenerative. There is additional mild subchondral marrow edema of the left sacral alar, about the left inferior sacroiliac joint, degenerative as well. No acute fracture of the sacrum. The sacral neural foramen are widely patent. No effusion, or erosion of either sacroiliac joint to suggest sacroiliitis. Soft tissues: Status posthysterectomy. IMPRESSION: Mild degenerative changes of bilateral sacroiliac joint with mild subchondral marrow edema. Dictated by: Lorena Gill M.D. on 04/10/2024 at 17:29 Approved by: Lorena Gill M.D. on 04/10/2024 at 17:33
--- NOTE | 2024-04-10 | DI.MRI.S_ITS ---
PROCEDURE: MR LUMBAR SPINE WO CON INDICATIONS: SACROILIITIS/LUMBAR FORAMIAL STENOSIS/RADICULOPAHY TECHNIQUE: Noncontrast sagittal T1 spin echo and T2 fast echo, sagittal STIR, and T2 fast spin echo through the lumbar spine. In cases with scoliosis, additional coronal T2 fast spin echo may be performed. COMPARISON: [facility], MR, MR LUMBAR SPINE WO CON, 08/31/2021, 13:55. FINDINGS: Image quality: Excellent Moderate dextroscoliosis of the lumbar spine, centered at L3. Mild retrolisthesis of T11 on T12. Grade 1 anterolisthesis L2 on L3, L3 on L4, and L5 on S1. Vertebral body heights are well maintained. Multilevel fibrovascular endplate change, most pronounced and mild at L3-4. Conus terminates at the level of L1-2, and is unremarkable. Right neural foraminal stenosis: Severe at T10-T11, T11-T12, and T12-L1. Mild at L1-2, moderate at L4-5. Left neural foraminal stenosis: Mild at L1-2, L3-4. Axial images: T10-T11: Disc bulge. Mild bilateral facet arthropathy. Mild central canal stenosis. T11-T12: Posterior disc uncovering. Mild bilateral facet arthropathy. Mild central canal stenosis. T12-L1: Disc bulge. Mild bilateral facet arthropathy. No central canal stenosis. L1-2: Disc bulge. Mild bilateral facet arthropathy. Mild central canal stenosis. L2-3: Moderate bilateral facet arthropathy. Disc bulge. Mild central canal stenosis. L3-4: Disc bulge. Mild bilateral facet arthropathy. Mild central canal stenosis. L4-5: Disc bulge. Mild bilateral facet arthropathy. No central canal stenosis. L5-S1: Mild bilateral facet arthropathy. No central canal stenosis. Visualized sacrum is intact. Mild degenerative changes of bilateral sacroiliac joint. No abdominal aortic aneurysm. IMPRESSION: 1. Multilevel degenerative changes lumbar spine, most pronounced at L4-5, where there is moderate right neural foraminal stenosis, grossly unchanged. 2. Multilevel mild central canal stenosis of the lumbar spine. 3. Severe right neural foraminal stenosis at T10-T11, T11-T12 and T12-L1. Dictated by: Lorena Gill M.D. on 04/10/2024 at 17:19 Approved by: Lorena Gill M.D. on 04/10/2024 at 17:29
== END ==
PROVIDERS: PCP Family Medicine; Referring Provider Acupuncturist; Visit Provider Acupuncturist
DX: M47.27 Other spondylosis with radiculopathy, lumbosacral region (principal); M47.26 Other spondylosis with radiculopathy, lumbar region; M46.1 Sacroiliitis, not elsewhere classified; M48.061 Spinal stenosis, lumbar region without neurogenic claudication; M48.04 Spinal stenosis, thoracic region; M47.814 Spondylosis without myelopathy or radiculopathy, thoracic region
CPT/HCPCS: 72148; 72195

== ENCOUNTER → 2024-06-23 08:15 | Outpatient (CLI) | payer OTHER, SELFPAY ==
[2024-06-23 09:02] LABS: Add Manual Diff / Slide Review NO; Basophils Absolute Auto 0 /uL (0-100); Basophils Percent Auto 0.6 % (0-2); Eosinophils Absolute Auto 300 /uL (0-450); Eosinophils Percent Auto 4.5 % (2-4); Hematocrit 39.1 % (36-46); Hemoglobin 13.1 g/dL (12.0-16.0); Lymphocytes Absolute Auto 2400 /uL (1100-4500); Lymphocytes Percent Auto 41.6 % (25-40); Mean Corpuscular HGB Conc 33.5 % (30-36); Mean Corpuscular Hemoglobin 31.6 PG (26-34); Mean Corpuscular Volume 94.3 fL (80-100); Monocytes Absolute Auto 600 /uL (0-900); Monocytes Percent Auto 10.5 % (3-14); Neutrophils Absolute Auto 2500 /uL (1500-7000); Neutrophils Percent Auto 42.8 % (50-75); Platelet Count 232 X10^3/uL (150-400); Red Blood Cell Count 4.14 X10^6/uL (4.0-5.2); Red Cell Distribution Width 13.3 % (11.6-14.8); White Blood Cell Count 5.7 X10^3/uL (4.5-11.0)
[2024-06-23 09:19] LABS: Alanine Aminotransferase 22 IU/L (<35); Albumin Globulin Ratio 1.4 (1.0-2.8); Alkaline Phosphatase 130 U/L (38-126); Aspartate Aminotransferase 26 IU/L (14-36); BUN Creatinine Ratio 24.2 (6-22); Bilirubin Total 0.7 mg/dL (0.2-1.3); Blood Urea Nitrogen 23 mg/dL (7-17); Calcium 9.7 mg/dL (8.4-10.2); Carbon Dioxide 28 mmol/L (22-32); Chloride 102 mmol/L (98-107); Cholesterol 168 mg/dL (140-199); Estimated Glomerular Filt Rate > 60 mL/min (>60); Globulin 2.8 g/dL (1.7-4.1); Glucose 82 mg/dL (80-110); HDL Cholesterol 107 mg/dL (40-60); HEMOLYSIS < 15 (0-50); LDL Cholesterol Calculated 47 mg/dL (<100); Potassium 4.5 mmol/L (3.4-5.1); Sodium 134 mmol/L (137-145); Total Protein 6.8 g/dL (6.3-8.2); Triglycerides 68 mg/dL (35-150)
[2024-06-23 09:50] LABS: TSH w/ Reflex to FT4 3.84 uIU/mL (0.47-4.68)
== END ==
PROVIDERS: PCP Family Medicine; Referring Provider Family Medicine; Visit Provider Family Medicine
DX: E03.9 Hypothyroidism, unspecified (principal); I12.9 Hypertensive chronic kidney disease with stage 1 through stage 4 chronic kidney disease, or unspecified chronic kidney disease; N18.2 Chronic kidney disease, stage 2 (mild)
CPT/HCPCS: 36415; 80053; 80061; 84443; 85025

== ENCOUNTER → 2024-10-14 09:10 | Outpatient (CLI) | payer OTHER, SELFPAY ==
--- NOTE | 2024-10-14 09:11 | DI.MRI.S_ITS ---
PROCEDURE: MR THORACIC SPINE WO CON INDICATIONS: THORACIC RADICULOPATHY TECHNIQUE: Noncontrast sagittal T1 spine echo and T2 fast spin echo, sagittal STIR, and T2 fast spin echo through the thoracic spine. COMPARISON: None. FINDINGS: Image quality: Excellent. Alignment and Curvature: Levo scoliotic curvature of the thoracolumbar spine. Bone Marrow: Marrow is of normal overall signal. No acute vertebral body compression fractures. Spinal Cord: Visualized spinal cord is normal in size and signal. Paraspinous Soft Tissues: No paravertebral masses. Miscellaneous: Multilevel disc desiccation height loss. Multilevel small posterior disc bulges. At least mild central canal stenosis at T11-T12. Other levels are grossly patent. Moderate right neural foraminal stenosis at T12-L1. No significant neural foraminal stenosis at other levels. IMPRESSION: 1. Multilevel degenerative changes of the thoracic spine with levo scoliotic curvature at the thoracolumbar junction. 2. At least mild central canal stenosis at T11-T12. No significant central canal stenosis elsewhere. Moderate right neural foraminal stenosis at T12-L1. No significant neural foraminal stenosis at other levels. Dictated by: Nabil Mistry M.D. on 10/16/2024 at 8:58 Approved by: Nabil Mistry M.D. on 10/16/2024 at 9:03
== END ==
PROVIDERS: PCP Family Medicine; Referring Provider Acupuncturist; Visit Provider Acupuncturist
DX: M47.24 Other spondylosis with radiculopathy, thoracic region (principal); M48.04 Spinal stenosis, thoracic region; M41.9 Scoliosis, unspecified
CPT/HCPCS: 72146

== ENCOUNTER → 2025-01-02 07:49 | Outpatient (CLI) | payer OTHER, SELFPAY ==
[2025-01-02 08:23] LABS: Add Manual Diff / Slide Review NO; Basophils Absolute Auto 0 /uL (0-100); Basophils Percent Auto 0.8 % (0-2); Eosinophils Absolute Auto 200 /uL (0-450); Eosinophils Percent Auto 4.1 % (2-4); Hematocrit 38.9 % (36-46); Hemoglobin 13.2 g/dL (12.0-16.0); Lymphocytes Absolute Auto 1900 /uL (1100-4500); Lymphocytes Percent Auto 42.3 % (25-40); Mean Corpuscular Hemoglobin 32.5 PG (26-34); Mean Corpuscular Volume 95.6 fL (80-100); Monocytes Absolute Auto 500 /uL (0-900); Neutrophils Absolute Auto 1900 /uL (1500-7000); Neutrophils Percent Auto 41.8 % (50-75); Platelet Count 208 X10^3/uL (150-400); Red Blood Cell Count 4.07 X10^6/uL (4.0-5.2); Red Cell Distribution Width 13.5 % (11.6-14.8); White Blood Cell Count 4.5 X10^3/uL (4.5-11.0)
[2025-01-02 08:53] LABS: Alanine Aminotransferase 21 IU/L (<35); Albumin 4.3 g/dL (3.5-5.0); Albumin Globulin Ratio 1.7 (1.0-2.8); Alkaline Phosphatase 134 U/L (38-126); Aspartate Aminotransferase 23 IU/L (14-36); BUN Creatinine Ratio 26.1 (6-22); Bilirubin Total 0.8 mg/dL (0.2-1.3); Blood Urea Nitrogen 23 mg/dL (7-17); Calcium 9.8 mg/dL (8.4-10.2); Carbon Dioxide 29 mmol/L (22-32); Chloride 104 mmol/L (98-107); Cholesterol 179 mg/dL (140-199); Estimated Glomerular Filt Rate > 60 mL/min (>60); Globulin 2.6 g/dL (1.7-4.1); Glucose 84 mg/dL (70-99); HDL Cholesterol 101 mg/dL (40-60); HEMOLYSIS < 15 (0-50); LDL Cholesterol Calculated 69 mg/dL (<100); Potassium 4.9 mmol/L (3.4-5.1); Sodium 139 mmol/L (137-145); Total Protein 6.9 g/dL (6.3-8.2); Triglycerides 47 mg/dL (35-150)
[2025-01-02 09:08] LABS: Free T3, Triiodothyronine Free 5.61 pg/mL (2.77-5.27); Free T4, Direct Thyroxine 1.29 ng/dL (0.78-2.19)
[2025-01-02 09:22] LABS: Thyroid Stimulating Hormone 1.38 uIU/mL (0.47-4.68)
== END ==
LOC: LAB 07:50
PROVIDERS: PCP Family Medicine; Referring Provider Family Medicine; Visit Provider Family Medicine
DX: I10 Essential (primary) hypertension (principal); E87.1 Hypo-osmolality and hyponatremia; E87.5 Hyperkalemia; D64.9 Anemia, unspecified; E03.9 Hypothyroidism, unspecified
CPT/HCPCS: 36415; 80053; 80061; 84439; 84443; 84481; 85025

== ENCOUNTER → 2025-03-30 09:41 | Outpatient (CLI) | payer OTHER, SELFPAY ==
--- NOTE | 2025-03-30 09:42 | DI.RAD.S_ITS ---
PROCEDURE: XR DEXA AXIAL SKELETON INDICATIONS: Screening for osteoporosis COMPARISON: [facility], RAVINDER, XR DEXA AXIAL SKELETON, 06/16/2022, 15:25. FINDINGS: Lumbar Spine: Bone mineral density 1.243 (previously 0.990) g/cm2, T score 1.5 (previously -0.5). Left Femoral Neck: Bone mineral density 0.720 (previously 0.609) g/cm2, T score -1.2 (previously -2.2). Left Hip: Bone mineral density 0.838 (previously 0.780) g/cm2, T score -0.9 (previously -1.3). Fracture Risk Calculation (when applicable): 10-year fracture risk of a major osteoporotic fracture 7.3 percent and of a hip fracture 0.5 percent. (T score greater or equal to -1.0 to: NORMAL) (T score from -1.1 to -2.4: OSTEOPENIA) (T score less than or equal to -2.5: OSTEOPOROSIS) IMPRESSION: Osteopenia--- recommend repeat DEXA in 2-3 years for reassessment. Follow-up guidelines as follows: Osteoporosis: Consider a repeat DEXA and Vertebral Fracture Assessment (VFA) exam in 2 years or sooner if medically necessary, to reassess this patient's status. Osteopenia: Consider a repeat DEXA in 2-3 years to reassess this patient's status, or if there is a new clinical indication. Normal: Consider a repeat DEXA in 5 years or sooner, or if there is a new clinical indication. All treatment decisions require clinical judgment and consideration of individual patient factors, including patient preferences, comorbidities, previous drug use, risk factors not captured in the FRAX model (e.g., frailty, falls, vitamin D deficiency, increased bone turnover, interval significant decline in bone density ) and possible under- or over-estimation of fracture risk by FRAX. In addition, the NOF Guide recommends that FDA-approved medical therapies be considered in postmenopausal women and men age >= 50 years with a: * Hip or vertebral (clinical or morphometric) fracture * T-score of <=-2.5 at the spine or hip * Ten-year fracture probability by FRAX of >= 3% for hip fracture or >=20% for major osteoporotic fracture. Dictated by: Wesley Tolbert M.D. on 03/30/2025 at 19:26 Approved by: Wesley Tolbert M.D. on 03/30/2025 at 19:31
== END ==
LOC: RAD 09:42
PROVIDERS: PCP Family Medicine; Referring Provider Family Medicine; Visit Provider Family Medicine
DX: M85.852 Other specified disorders of bone density and structure, left thigh (principal); Z78.0 Asymptomatic menopausal state
CPT/HCPCS: 77080

== ENCOUNTER → 2025-05-14 08:24 | Outpatient (CLI) | payer OTHER, SELFPAY ==
--- NOTE | 2025-05-14 08:26 | DI.RAD.S_ITS ---
PROCEDURE: XR FOOT LT MIN 3V INDICATIONS: Pain across distal foot-dropped table TECHNIQUE: 3 views of the foot were acquired. COMPARISON: [facility], CR, XR FOOT LT MIN 3V, 01/30/2024, 13:19. FINDINGS: Bones: Stable appearance of 1st, 2nd and 3rd TMT fusion. Hardware is intact without hardware fracture or periprosthetic lucency to suggest loosening. Alignment is stable. Overall appearance of Charcot foot without significant interval change. Pes planus is present. Osteopenia. Osteoarthritic changes are present in the forefoot and hindfoot joints with midfoot fusion. No visualized appearance of osteomyelitis. Soft tissues: No tibiotalar joint effusion. Achilles tendon appears normal. IMPRESSION: Stable appearance of Charcot joint. Dictated by: Mer Hearn M.D. on 05/14/2025 at 15:47 Approved by: Mer Hearn M.D. on 05/14/2025 at 15:52
== END ==
PROVIDERS: PCP Family Medicine; Referring Provider Physician Assistant; Visit Provider Physician Assistant
DX: M79.672 Pain in left foot (principal); A52.16 Charcot's arthropathy (tabetic); M21.42 Flat foot [pes planus] (acquired), left foot; Z98.1 Arthrodesis status
CPT/HCPCS: 73630